=== PATIENT | male | born 1965 | race Caucasian/White ===

== ENCOUNTER 2017-01-24 13:32 | Inpatient (IN) | payer OTHER ==
[~2017-01-24] VITALS: Ht 165.1 cm; Wt 80.0 kg
[~2017-01-24 13:32] MED LIST: AMLODIPINE BESY10 MG PO; AMLODIPINE BESYL5 MG PO; ASPIR 8181 M1 PO; ASPIRIN81 M2 PO; ATORVASTATIN CA40 MG PO; AUGMENTIN875 MG PO; AZOR 5/20 MG1 TABLET; Advair 250/50 Diskus IH; BACTRIM,SEPT1 TABLET PO; BENADRYL25 MG PO; BENICAR HCT 401 EAC1 PO; BENICAR20 MG PO; BENTYL10 MG PO; BENTYL20 MG PO; Benicar PO; CATAPRES0.2 MG PO; CEPHALEXIN500 MG PO; CLEOCIN300 MG PO; CLOPIDOGREL75 MG PO; COLACE100 MG PO; DAILY VITAMIN1 EAC8 PO; DICLOFENAC SODI75 MG PO; DIVALPROEX SOD250 MG PO; DOXYCYCLINE HY100 MG PO; FEOSOL325 MG PO; FERROUS SULFAT325 MG PO; FISH OIL CONC1000 M1 PO; FLOMAX0.4 MG PO; FLUOXETINE HCL20 MG PO; Feosol PO; GABAPENTIN300 MG PO; GABAPENTIN400 MG PO; GEMFIBROZIL600 MG PO; GLUCOPHAGE850 MG PO; Glucophage PO; HYDROCODONE-AP1 EAC9 PO; INVanz IV; IRON325 M1 PO; IRON325 MG PO; KADIAN10 MG PO; KEFLEX500 MG PO; Keflex PO; LABETALOL HCL200 MG PO; LABETALOL HCL300 MG PO; LANTUS 10100 UNITS/ SC; LANTUS 3 M100 UNITS1 SC; LANTUS SOLOSTAR SC; LEVEMIR FL100 UNIT/1 SC; LIPITOR; LIPITOR10 MG PO; LIPITOR20 MG PO; LIPITOR40 MG PO; LISINOPRIL10 MG PO; LISINOPRIL20 MG PO; LOPRESSOR25 MG PO; LOPRESSOR50 MG PO; LORAZEPAM1 MG PO; LOSARTAN POTASS25 MG PO; Lopid PO; Lopressor PO; Lotrel 5/20 PO; MELATIN3 MG PO; MEN'S MULTI-VI1 EACH PO; METFORMIN HCL850 MG PO; METOCLOPRAMIDE10 MG PO; METOPROLOL PO; METOPROLOL SUCC50 MG PO; METOPROLOL TART25 MG PO; MS CONTIN,ORAMO15 M1 PO; MUPIROCIN22 GM TP; NAPROSYN500 MG PO; NEURONTIN100 MG PO; NEURONTIN300 MG PO; NEURONTIN400 MG PO; NORCO 5/3251 TABLET PO; Neurontin PO; OXYCODONE-ACET1 EACH PO; PERCOCET 2.51 TABLET PO; PERCOCET 5/31 TABLET PO; PERCOCET 7.51 TABLET PO; PHENERGAN; PLAVIX75 MG PO; PREDNISOL15 ML BOTH EYES; PRILOSEC20 MG PO; PRINIVIL10 MG PO; PRINIVIL20 MG PO; PROBIOTIC COMP1 EAC1 PO; PROPOXY-N/APAP1 EAC1 PO; PROTONIX40 MG PO; PROVENTIL,2.5 MG/0.5 IH; PROZAC20 MG PO; PROzac PO; Percocet 5/325,Endoc PO; Proventil,Ventolin H IH; QUESTRAN PACKET4 GM PO; REGLAN10 MG PO; ROCEPHIN 2 GM VI2 GM IM; ROCEPHIN 2 GM VI2 GM IV; Reglan PO; SANTYL30 GM TP; SENTRY SENIOR1 EAC1 PO; SULFAMETHOXAZO1 EAC1 PO; SYNTHROID50 MCG PO; TAMIFLU75 MG PO; TIZANIDINE HCL4 M1 PO; TRAMADOL HCL50 MG PO; TYLENOL EXTRA500 MG PO; Toprol XL PO; Ultram PO; VANCOMYCIN125 MG/2.5 PO; VICODIN,LORT1 TABLET PO; Vancomycin IV; Vicodin,Norco 5/325 PO; ZESTRIL,PRINIVI20 MG PO; Zestril,Prinivil PO; [UNRECOGNIZED DRUG - OTHER] PO; [UNRECOGNIZED DRUG - SUPPLY]; predniSONE PO
[2017-01-24 15:29] LABS: INFLUENZA A VIRAL ANTIGEN NEGATIVE; INFLUENZA B VIRAL ANTIGEN NEGATIVE
[2017-01-24 15:39] LABS: BASOPHIL COUNT 0.1 K/uL (0-0.1); EOSINOPHIL (%) 0.1 % (0-5); HEMATOCRIT 30.9 % (38.0-50.0); IMMATURE GRANULOCYTE (%) 0.3 % (0.0-0.7); IMMATURE GRANULOCYTE COUNT 0.4 K/uL; LYMPHOCYTE COUNT 0.7 K/uL (1.0-2.8); MCH 29.7 PG (29.0-34.0); MCHC 32.7 G/DL (30.0-36.0); MCV 90.9 FL (86-99); MEAN PLAT.VOLUME 9.6 uM^3 (9.0-12.4); MONOCYTE (%) 5.8 % (3-12); MONOCYTE COUNT 0.7 K/uL (0-0.8); NEUTROPHIL (%) 88.2 % (45-76); PLATELET COUNT 238 K/uL (156-360); RBC DIS.WIDTH-CV 12.6 % (11.8-14.6); RBC DIS.WIDTH-SD 40.8 % (39-53); WHITE BLOOD COUNT 12.5 K/uL (4.1-10.2)
[2017-01-24 15:49] LABS: CHLORIDE 107 mEq/L (99-109); POTASSIUM 3.9 mEq/L (3.7-5.4)
[2017-01-24 15:50] LABS: SODIUM 140 mEq/L (136-147)
[2017-01-24 15:51] LABS: GLUCOSE 115 mg/dL (70-99)
[2017-01-24 15:53] LABS: ANION GAP 9 MEQ/L (2-14)
[2017-01-24 15:55] LABS: GFR ESTIMATE (CALCULATED) 23 mL/min/
[2017-01-24 15:56] LABS: UREA NITROGEN (BUN) 21 mg/dL (9-23)
[2017-01-24 16:01] LABS: TROP-I INTERPRETATION NEGATIVE; TROPONIN-I 0.03 ng/mL (0.0-0.30)
[2017-01-24 16:16] LABS: INTER. NORMALIZED RATIO 1.1; PROTHROMBIN TIME 10.9 (9.2-11.2); PTT 36.1 (25-32)
[2017-01-24 19:49] LABS: MAGNESIUM 1.4 mg/dL (1.3-2.7); POTASSIUM 3.7 mEq/L (3.7-5.4)
[2017-01-24] MEDS ORDERED: KALEXATE454 GM PO (21:54)
[2017-01-24] MEDS ORDERED: LABETALOL HCL200 MG PO (21:56)
[2017-01-24] MEDS ORDERED: NORVASC5 MG PO (21:56)
[2017-01-24] MEDS ORDERED: ATORVASTATIN CA40 MG PO (21:57)
[2017-01-24] MEDS ORDERED: LEVOTHYROXINE50 MCG PO (21:57)
[2017-01-24] MEDS ORDERED: JANUVIA100 MG PO (21:58)
[2017-01-24] MEDS ORDERED: GABAPENTIN400 MG PO (21:59)
[2017-01-24] MEDS ORDERED: BACLOFEN10 MG PO (22:00)
[2017-01-24 23:37] LABS: ADD MIUA? YES; BILIRUBIN NEGATIVE; BLOOD NEGATIVE; COLOR YELLOW ((YELLOW)); GLUCOSE (STRIP) 150; KETONES 5; LEUKOCYTES NEGATIVE; NITRITE NEGATIVE; PROTEIN (STRIP) >=500; SPECIFIC GRAVITY 1.014 (1.000-1.030); UROBILINOGEN 0.2 MG/DL (0.2-1.0)
[2017-01-24 23:45] LABS: BACTERIA NONE SEEN /HPF; EPITHELIAL CELLS RARE /HPF; HYALINE CASTS 0-5 /LPF; MUCUS TRACE /LPF; RED BLOOD CELLS 0-5 /HPF (0-5); UCUL ADDED? NO; WHITE BLOOD CELLS 0-5 /HPF (0-5)
[2017-01-25] VITALS (7 sets, daily range): BP systolic 140–187; BP diastolic 63–83
[2017-01-25 06:16] LABS: MCH 30.3 PG (29.0-34.0); MCHC 33.2 G/DL (30.0-36.0); MCV 91.2 FL (86-99); MEAN PLAT.VOLUME 9.7 uM^3 (9.0-12.4); PLATELET COUNT 244 K/uL (156-360); RBC DIS.WIDTH-CV 12.7 % (11.8-14.6); WHITE BLOOD COUNT 8.9 K/uL (4.1-10.2)
[2017-01-25 06:26] LABS: CHLORIDE 110 mEq/L (99-109); POTASSIUM 3.6 mEq/L (3.7-5.4); SODIUM 140 mEq/L (136-147)
[2017-01-25 06:28] LABS: GLUCOSE 118 mg/dL (70-99)
[2017-01-25 06:29] LABS: ANION GAP 10 MEQ/L (2-14)
[2017-01-25 06:31] LABS: GFR ESTIMATE (CALCULATED) 24 mL/min/
[2017-01-25 06:32] LABS: UREA NITROGEN (BUN) 25 mg/dL (9-23)
[2017-01-25] MEDS ORDERED: LEVO-T100 MCG PO (14:38)
[2017-01-25] MEDS ORDERED: PLAVIX75 MG PO (14:39)
[2017-01-25] MEDS ORDERED: IRON325 M1 PO (14:40)
[2017-01-25] MEDS ORDERED: ASPIR 8181 M1 PO (14:40)
[2017-01-26 05:18] VITALS: BP 170/82
[2017-01-26 06:00] VITALS: BP 154/78
[2017-01-26 06:21] LABS: ALKALINE PHOSPHATASE 60 IU/L (3-129); ANION GAP 8 MEQ/L (2-14); CHLORIDE 107 MEQ/L (99-109); CREATINE KINASE 524 IU/L (1-294); GFR ESTIMATE (CALCULATED) 24 mL/min/; GLUCOSE 119 mg/dL (70-99); MAGNESIUM 1.9 mg/dl (1.3-2.7); POTASSIUM 3.7 MEQ/L (3.7-5.4); SAMPLE HEMOLYSIS CHECK 0; SAMPLE ICTERIC CHECK 0; SAMPLE LIPEMIA CHECK 0; SODIUM 139 MEQ/L (136-147); TOTAL BILIRUBIN 0.2 MG/DL (0.0-1.0); UREA NITROGEN (BUN) 31 mg/dL (9-23)
[2017-01-26 06:44] LABS: EOSINOPHIL (%) 4.3 % (0-5); EOSINOPHIL COUNT 0.3 K/uL (0-0.3); HEMATOCRIT 26.7 % (38.0-50.0); IMMATURE GRANULOCYTE (%) 0.2 % (0.0-0.7); LYMPHOCYTE COUNT 0.7 K/uL (1.0-2.8); MCH 29.1 PG (29.0-34.0); MCHC 32.6 G/DL (30.0-36.0); MCV 89.3 FL (86-99); MEAN PLAT.VOLUME 10.1 uM^3 (9.0-12.4); MONOCYTE COUNT 0.7 K/uL (0-0.8); NEUTROPHIL (%) 72.5 % (45-76); NEUTROPHIL COUNT 4.4 K/uL (1.8-6.4); PLATELET COUNT 221 K/uL (156-360); RBC DIS.WIDTH-CV 12.8 % (11.8-14.6); RBC DIS.WIDTH-SD 41.2 % (39-53); RED BLOOD COUNT 2.99 M/uL (4.00-5.50)
[2017-01-26 06:45] LABS: WHITE BLOOD COUNT 6.1 K/uL (4.1-10.2)
[2017-01-26 08:05] VITALS: BP 221/85
[2017-01-26 11:18] VITALS: BP 184/82
[2017-01-26 18:22] VITALS: BP 174/88
[2017-01-26 20:55] VITALS: BP 190/91
[2017-01-27] VITALS: BP 155/78
[2017-01-27 06:48] LABS: EOSINOPHIL (%) 5.9 % (0-5); EOSINOPHIL COUNT 0.4 K/uL (0-0.3); IMMATURE GRANULOCYTE (%) 0.3 % (0.0-0.7); INSTRUMENT ABS NEUTROPHIL CT 3.6 K/uL; LYMPHOCYTE COUNT 1.2 K/uL (1.0-2.8); MCH 29.9 PG (29.0-34.0); MCHC 32.8 G/DL (30.0-36.0); MCV 91.2 FL (86-99); MEAN PLAT.VOLUME 10.3 uM^3 (9.0-12.4); MONOCYTE (%) 14.1 % (3-12); MONOCYTE COUNT 0.8 K/uL (0-0.8); NEUTROPHIL (%) 59.6 % (45-76); NEUTROPHIL COUNT 3.6 K/uL (1.8-6.4); PLATELET COUNT 201 K/uL (156-360); RBC DIS.WIDTH-CV 12.5 % (11.8-14.6); RBC DIS.WIDTH-SD 41.5 % (39-53); RED BLOOD COUNT 2.74 M/uL (4.00-5.50)
[2017-01-27 07:13] LABS: ALKALINE PHOSPHATASE 64 IU/L (3-129); ANION GAP 9 MEQ/L (2-14); CHLORIDE 110 MEQ/L (99-109); GFR ESTIMATE (CALCULATED) 25 mL/min/; GLUCOSE 140 mg/dL (70-99); POTASSIUM 3.8 MEQ/L (3.7-5.4); SAMPLE HEMOLYSIS CHECK 0; SAMPLE ICTERIC CHECK 0; SAMPLE LIPEMIA CHECK 0; SODIUM 142 MEQ/L (136-147); TOTAL BILIRUBIN 0.2 MG/DL (0.0-1.0); UREA NITROGEN (BUN) 28 mg/dL (9-23)
[2017-01-27 08:34] VITALS: BP 207/84
[2017-01-27 15:59] VITALS: BP 150/63
[2017-01-27 22:02] VITALS: BP 165/70
[2017-01-28] VITALS: BP 143/69
[2017-01-28 07:41] VITALS: BP 142/59
[2017-01-28 07:52] LABS: ANION GAP 9 MEQ/L (2-14); C-REACTIVE PROTEIN 52.1 MG/L (0-10); CHLORIDE 113 MEQ/L (99-109); GFR ESTIMATE (CALCULATED) 24 mL/min/; POTASSIUM 3.9 MEQ/L (3.7-5.4); SAMPLE HEMOLYSIS CHECK 0; SAMPLE ICTERIC CHECK 0; SAMPLE LIPEMIA CHECK 0; SODIUM 143 MEQ/L (136-147); UREA NITROGEN (BUN) 28 mg/dL (9-23)
[2017-01-28 07:53] LABS: GLUCOSE 91 mg/dL (70-99)
[2017-01-28 07:54] LABS: MCHC 32.1 G/DL (30.0-36.0); MCV 93.3 FL (86-99); MEAN PLAT.VOLUME 10.3 uM^3 (9.0-12.4); RBC DIS.WIDTH-CV 12.8 % (11.8-14.6); WHITE BLOOD COUNT 7.7 K/uL (4.1-10.2)
[2017-01-28 08:40] LABS: PLATELET COUNT 271 K/uL (156-360)
[2017-01-28 11:17] LABS: ERTH.SED.RATE 73 MM/HR (0-20)
[2017-01-28 15:25] VITALS: BP 160/76
[2017-01-28 21:10] VITALS: BP 162/68
[2017-01-28 23:15] VITALS: BP 189/89
[2017-01-29 07:38] VITALS: BP 150/73
[2017-01-29 10:00] LABS: HEMATOCRIT 26.6 % (38.0-50.0); MCH 30.3 PG (29.0-34.0); MCHC 32.7 G/DL (30.0-36.0); MCV 92.7 FL (86-99); MEAN PLAT.VOLUME 10.1 uM^3 (9.0-12.4); PLATELET COUNT 263 K/uL (156-360); RBC DIS.WIDTH-CV 12.4 % (11.8-14.6); RBC DIS.WIDTH-SD 41.5 % (39-53); RED BLOOD COUNT 2.87 M/uL (4.00-5.50); WHITE BLOOD COUNT 8.2 K/uL (4.1-10.2)
[2017-01-29 10:24] LABS: ANION GAP 7 MEQ/L (2-14); CHLORIDE 108 MEQ/L (99-109); GFR ESTIMATE (CALCULATED) 23 mL/min/; GLUCOSE 133 mg/dL (70-99); POTASSIUM 3.9 MEQ/L (3.7-5.4); SAMPLE HEMOLYSIS CHECK 0; SAMPLE ICTERIC CHECK 0; SAMPLE LIPEMIA CHECK 0; SODIUM 138 MEQ/L (136-147); UREA NITROGEN (BUN) 33 mg/dL (9-23)
[2017-01-29 15:41] VITALS: BP 160/70
[2017-01-29 22:58] VITALS: BP 177/75
[2017-01-30 07:44] LABS: ANION GAP 8 MEQ/L (2-14); CHLORIDE 111 MEQ/L (99-109); GFR ESTIMATE (CALCULATED) 27 mL/min/; GLUCOSE 109 mg/dL (70-99); POTASSIUM 4.4 MEQ/L (3.7-5.4); SAMPLE HEMOLYSIS CHECK 0; SAMPLE ICTERIC CHECK 0; SAMPLE LIPEMIA CHECK 0; SODIUM 140 MEQ/L (136-147); UREA NITROGEN (BUN) 29 mg/dL (9-23)
[2017-01-30 07:46] VITALS: BP 194/99
[2017-01-30] MEDS ORDERED: FUROSEMIDE20 MG PO (08:05)
[2017-01-30] MEDS ORDERED: APRESOLINE100 MG PO (08:05)
[2017-01-30] MEDS ORDERED: HYDROCODON-ACE1 EAC7 PO (08:05)
[2017-01-30] MEDS ORDERED: AMLODIPINE BESY10 MG PO (08:05)
[2017-01-30 15:00] VITALS: BP 183/70
[2017-01-30 18:12] VITALS: BP 184/87
[2017-01-30 18:23] LABS: POINT-OF-CARE METER ID UU14149397
[2017-01-30 23:51] VITALS: BP 111/49
[2017-01-31 05:34] VITALS: BP 180/77
[2017-01-31 06:43] LABS: POINT-OF-CARE METER ID UU14188577
[2017-01-31 07:16] VITALS: BP 167/79
[2017-01-31 09:31] LABS: ANION GAP 9 MEQ/L (2-14); CHLORIDE 108 MEQ/L (99-109); GFR ESTIMATE (CALCULATED) 28 mL/min/; GLUCOSE 103 mg/dL (70-99); SAMPLE HEMOLYSIS CHECK 1; SAMPLE ICTERIC CHECK 0; SAMPLE LIPEMIA CHECK 0; SODIUM 137 MEQ/L (136-147); UREA NITROGEN (BUN) 29 mg/dL (9-23)
[2017-01-31 09:35] LABS: POTASSIUM 4.9 MEQ/L (3.7-5.4)
[2017-01-31 11:55] LABS: POINT-OF-CARE METER ID UU14188577
[2017-01-31 15:39] VITALS: BP 159/71
[2017-01-31 16:36] LABS: POINT-OF-CARE METER ID UU14188577
[2017-01-31 21:49] LABS: POINT-OF-CARE METER ID UU14188577
[2017-01-31 23:42] VITALS: BP 137/63
[2017-02-01 08:00] VITALS: BP 151/67
== END 2017-02-01 15:39 | disposition home health service (06) | DRG 854 ==
LOC: EME → EDBD 13:32 → EDOF 18:21 → 4SOUTH 18:21 → 3EAST 01-30 17:45
PROVIDERS: Emergency Medicine; Family Medicine; Internal Medicine Nephrology; Nurse Practitioner Adult Health; Surgery
PROC: 0QBN0ZX Excision of Right Metatarsal, Open Approach, Diagnostic (ICD-10-PCS; principal; 2017-01-27)
DX: A41.01 Sepsis due to Methicillin susceptible Staphylococcus aureus (principal); N17.9 Acute kidney failure, unspecified; M86.171 Other acute osteomyelitis, right ankle and foot; M86.671 Other chronic osteomyelitis, right ankle and foot; L03.115 Cellulitis of right lower limb; N18.4 Chronic kidney disease, stage 4 (severe); E86.0 Dehydration; R41.82 Altered mental status, unspecified; R33.9 Retention of urine, unspecified; I10 Essential (primary) hypertension; E11.621 Type 2 diabetes mellitus with foot ulcer; L97.514 Non-pressure chronic ulcer of other part of right foot with necrosis of bone; E11.40 Type 2 diabetes mellitus with diabetic neuropathy, unspecified; E11.21 Type 2 diabetes mellitus with diabetic nephropathy; E11.22 Type 2 diabetes mellitus with diabetic chronic kidney disease; E11.319 Type 2 diabetes mellitus with unspecified diabetic retinopathy without macular edema; E11.51 Type 2 diabetes mellitus with diabetic peripheral angiopathy without gangrene; I70.209 Unspecified atherosclerosis of native arteries of extremities, unspecified extremity; R60.9 Edema, unspecified; J45.909 Unspecified asthma, uncomplicated; K21.9 Gastro-esophageal reflux disease without esophagitis; E03.9 Hypothyroidism, unspecified; E78.00 Pure hypercholesterolemia, unspecified; D63.1 Anemia in chronic kidney disease; E55.9 Vitamin D deficiency, unspecified; Z79.02 Long term (current) use of antithrombotics/antiplatelets; Z79.82 Long term (current) use of aspirin; Z88.1 Allergy status to other antibiotic agents; Z91.040 Latex allergy status; Z89.421 Acquired absence of other right toe(s); Z89.422 Acquired absence of other left toe(s); I69.398 Other sequelae of cerebral infarction; H53.469 Homonymous bilateral field defects, unspecified side; Z79.84 Long term (current) use of oral hypoglycemic drugs
CPT/HCPCS: 70450; 71010; 74176; 76770; 76937; 80048; 80053; 80069; 81003; 82330; 82550; 82550 91; 82948; 83605; 83735; 83874 90; 83930; 84100; 84132 91; 84443; 84484; 85025; 85027; 85610; 85651; 85730; 86140; 87040; 87070; 87075; 87077; 87186; 87205; 87502; 87801; 88305; 88311; 93005; 93306; 99281; 99285; J0690; J0692; J0696; J1100; J1650; J2250; J2405; J3010; J7030; J7050; S0020

== ENCOUNTER 2017-02-04 19:19 | Emergency (ER) | payer OTHER ==
[~2017-02-04] VITALS: Ht 167.6 cm; Wt 86.5 kg
[~2017-02-04 19:19] MED LIST changes: +APRESOLINE100 MG PO; +BACLOFEN10 MG PO; +FUROSEMIDE20 MG PO; +HYDROCODON-ACE1 EAC7 PO; +JANUVIA100 MG PO; +KALEXATE454 GM PO; +LEVO-T100 MCG PO; +LEVOTHYROXINE50 MCG PO; +NORVASC5 MG PO
[2017-02-04 21:48] LABS: BASOPHIL COUNT 0.1 K/uL (0-0.1); EOSINOPHIL (%) 1.8 % (0-5); EOSINOPHIL COUNT 0.2 K/uL (0-0.3); HEMATOCRIT 26.3 % (38.0-50.0); IMMATURE GRANULOCYTE (%) 1.6 % (0.0-0.7); IMMATURE GRANULOCYTE COUNT 0.2 K/uL; INSTRUMENT ABS NEUTROPHIL CT 7.7 K/uL; LYMPHOCYTE COUNT 1.3 K/uL (1.0-2.8); MCHC 31.6 G/DL (30.0-36.0); MCV 94.9 FL (86-99); MEAN PLAT.VOLUME 9.6 uM^3 (9.0-12.4); MONOCYTE (%) 7.9 % (3-12); MONOCYTE COUNT 0.8 K/uL (0-0.8); NEUTROPHIL (%) 75.5 % (45-76); NEUTROPHIL COUNT 7.7 K/uL (1.8-6.4); PLATELET COUNT 327 K/uL (156-360); RBC DIS.WIDTH-SD 44.5 % (39-53); RED BLOOD COUNT 2.77 M/uL (4.00-5.50); WHITE BLOOD COUNT 10.2 K/uL (4.1-10.2)
[2017-02-04 21:56] LABS: CHLORIDE 107 mEq/L (99-109); POTASSIUM 4.5 mEq/L (3.7-5.4); SODIUM 138 mEq/L (136-147)
[2017-02-04 21:58] LABS: GLUCOSE 112 mg/dL (70-99)
[2017-02-04 21:59] LABS: ANION GAP 9 MEQ/L (2-14)
[2017-02-04 22:02] LABS: GFR ESTIMATE (CALCULATED) 18 mL/min/; UREA NITROGEN (BUN) 39 mg/dL (9-23)
[2017-02-04 22:03] VITALS: BP 154/88
== END 2017-02-04 23:32 | disposition left against medical advice (07) ==
LOC: EME 19:19
PROVIDERS: Emergency Medicine
DX: S91.301A Unspecified open wound, right foot, initial encounter (principal); Z98.890 Other specified postprocedural states; Z48.01 Encounter for change or removal of surgical wound dressing; Z89.421 Acquired absence of other right toe(s); E11.65 Type 2 diabetes mellitus with hyperglycemia; I10 Essential (primary) hypertension; E78.5 Hyperlipidemia, unspecified; Z79.02 Long term (current) use of antithrombotics/antiplatelets; Z79.82 Long term (current) use of aspirin
CPT/HCPCS: 73630; 80048; 83605; 85025; 87040; 99281; 99284

== ENCOUNTER 2017-05-09 11:59 | Day surgery (SDC) | payer OTHER ==
[~2017-05-09] VITALS: Ht 167.6 cm; Wt 68.0 kg
[~2017-05-09 11:59] MED LIST changes: +CENTRUM SILVER1 EAC3 PO
[2017-05-09 12:41] LABS: POINT-OF-CARE METER ID UU14174212
== END 2017-05-09 14:58 | disposition home or self-care (01) ==
LOC: PAIN 11:59 → SDC 12:45 → PAIN 12:45
PROVIDERS: Anesthesiology Pain Medicine
DX: M47.816 Spondylosis without myelopathy or radiculopathy, lumbar region (principal); F41.9 Anxiety disorder, unspecified; R94.31 Abnormal electrocardiogram [ECG] [EKG]; Z79.891 Long term (current) use of opiate analgesic; I12.9 Hypertensive chronic kidney disease with stage 1 through stage 4 chronic kidney disease, or unspecified chronic kidney disease; N18.4 Chronic kidney disease, stage 4 (severe); D63.1 Anemia in chronic kidney disease; E78.5 Hyperlipidemia, unspecified; E11.22 Type 2 diabetes mellitus with diabetic chronic kidney disease; E11.49 Type 2 diabetes mellitus with other diabetic neurological complication; E11.39 Type 2 diabetes mellitus with other diabetic ophthalmic complication; F01.50 Vascular dementia, unspecified severity, without behavioral disturbance, psychotic disturbance, mood disturbance, and anxiety
CPT/HCPCS: 82948; 93005; J0360; J1030; J2250; J2310; J3010

== ENCOUNTER 2017-05-16 10:14 | Day surgery (SDC) | payer OTHER ==
[~2017-05-16] VITALS: Ht 167.6 cm; Wt 68.0 kg
[2017-05-16 11:51] LABS: POINT-OF-CARE METER ID UU13113694
== END 2017-05-16 13:21 | disposition home or self-care (01) ==
LOC: PAIN 10:14 → SDC 11:15 → PAIN 11:15
PROVIDERS: Anesthesiology Pain Medicine
DX: M47.812 Spondylosis without myelopathy or radiculopathy, cervical region (principal); M47.816 Spondylosis without myelopathy or radiculopathy, lumbar region; M47.814 Spondylosis without myelopathy or radiculopathy, thoracic region; M54.2 Cervicalgia; I12.9 Hypertensive chronic kidney disease with stage 1 through stage 4 chronic kidney disease, or unspecified chronic kidney disease; E11.22 Type 2 diabetes mellitus with diabetic chronic kidney disease; N18.4 Chronic kidney disease, stage 4 (severe); E11.49 Type 2 diabetes mellitus with other diabetic neurological complication; E11.39 Type 2 diabetes mellitus with other diabetic ophthalmic complication; I70.209 Unspecified atherosclerosis of native arteries of extremities, unspecified extremity; D63.1 Anemia in chronic kidney disease; E78.00 Pure hypercholesterolemia, unspecified; F41.8 Other specified anxiety disorders; Z79.891 Long term (current) use of opiate analgesic; Z79.02 Long term (current) use of antithrombotics/antiplatelets; Z79.82 Long term (current) use of aspirin; Z79.4 Long term (current) use of insulin
CPT/HCPCS: 82948; J0360; J1030; S0020

== ENCOUNTER 2017-06-15 10:34 | Observation (INO) | payer OTHER ==
[~2017-06-15] VITALS: Ht 167.6 cm; Wt 71.0 kg
[~2017-06-15 10:34] MED LIST changes: +GABAPENTIN600 MG PO
[2017-06-15 11:44] LABS: BASOPHIL COUNT 0.1 K/uL (0-0.1); EOSINOPHIL (%) 3.5 % (0-5); EOSINOPHIL COUNT 0.2 K/uL (0-0.3); HEMATOCRIT 31.1 % (38.0-50.0); IMMATURE GRANULOCYTE (%) 1.1 % (0.0-0.7); IMMATURE GRANULOCYTE COUNT 0.1 K/uL; INSTRUMENT ABS NEUTROPHIL CT 3.9 K/uL; LYMPHOCYTE COUNT 1.5 K/uL (1.0-2.8); MCH 30.7 PG (29.0-34.0); MCHC 34.4 G/DL (30.0-36.0); MCV 89.1 FL (86-99); MEAN PLAT.VOLUME 10.1 uM^3 (9.0-12.4); MONOCYTE (%) 7.8 % (3-12); MONOCYTE COUNT 0.5 K/uL (0-0.8); NEUTROPHIL (%) 62.6 % (45-76); NEUTROPHIL COUNT 3.9 K/uL (1.8-6.4); PLATELET COUNT 206 K/uL (156-360); RBC DIS.WIDTH-CV 12.9 % (11.8-14.6); RED BLOOD COUNT 3.49 M/uL (4.00-5.50); WHITE BLOOD COUNT 6.3 K/uL (4.1-10.2)
[2017-06-15 11:54] LABS: CHLORIDE 110 mEq/L (99-109); POTASSIUM 4.2 mEq/L (3.7-5.4); SODIUM 141 mEq/L (136-147)
[2017-06-15 11:57] LABS: GLUCOSE 125 mg/dL (70-99)
[2017-06-15 11:58] LABS: ANION GAP 9 MEQ/L (2-14)
[2017-06-15 11:59] LABS: TOTAL BILIRUBIN 0.2 mg/dL (0.0-1.0)
[2017-06-15 12:00] LABS: ALKALINE PHOSPHATASE 93 IU/L (3-129); GFR ESTIMATE (CALCULATED) 17 mL/min/
[2017-06-15 12:01] LABS: UREA NITROGEN (BUN) 32 mg/dL (9-23)
[2017-06-15 12:03] LABS: CREATINE KINASE 143 IU/L (1-294); TOTAL CK 143 IU/L (1-294)
[2017-06-15 12:04] LABS: TROP-I INTERPRETATION NEGATIVE; TROPONIN-I 0.06 ng/mL (0.0-0.30)
[2017-06-15 12:11] LABS: CK-MB 3.7 ng/mL (0.0-4.9)
[2017-06-15] MEDS ORDERED: SYNTHROID25 MCG PO (16:38)
[2017-06-15] MEDS ORDERED: CATAPRES0.2 MG PO (16:39)
[2017-06-15] MEDS ORDERED: ZANAFLEX2 MG PO (16:41)
[2017-06-15] MEDS ORDERED: TRAZODONE HCL50 MG PO (16:43)
[2017-06-15] MEDS ORDERED: VITAMIN D31000 UNIT PO (16:43)
[2017-06-15 19:22] VITALS: BP 138/77
== END 2017-06-15 18:35 | disposition home or self-care (01) ==
LOC: EME → EDBD 10:34 → EME 10:34 → EDOF 15:27 → ENRESERV 15:28 → CANRESERV 15:41 → EDOF 18:35
PROVIDERS: Emergency Medicine
DX: I16.0 Hypertensive urgency (principal); I12.9 Hypertensive chronic kidney disease with stage 1 through stage 4 chronic kidney disease, or unspecified chronic kidney disease; N18.5 Chronic kidney disease, stage 5; D63.1 Anemia in chronic kidney disease; E55.9 Vitamin D deficiency, unspecified; M54.9 Dorsalgia, unspecified; Z79.891 Long term (current) use of opiate analgesic; I70.209 Unspecified atherosclerosis of native arteries of extremities, unspecified extremity; N40.0 Benign prostatic hyperplasia without lower urinary tract symptoms; I69.398 Other sequelae of cerebral infarction; E78.5 Hyperlipidemia, unspecified; E03.9 Hypothyroidism, unspecified; E11.22 Type 2 diabetes mellitus with diabetic chronic kidney disease; Z86.19 Personal history of other infectious and parasitic diseases; Z91.040 Latex allergy status; Z79.82 Long term (current) use of aspirin
CPT/HCPCS: 80053; 82550; 82553; 84484; 85025; 99281; 99285; G0378; J0360

== ENCOUNTER 2017-07-11 07:26 | Day surgery (SDC) | payer OTHER ==
[~2017-07-11] VITALS: Ht 167.6 cm; Wt 69.4 kg
[~2017-07-11 07:26] MED LIST changes: +CARDURA2 M1 PO; -GABAPENTIN600 MG PO; +SYNTHROID25 MCG PO; +TRAZODONE HCL50 MG PO; +VITAMIN D31000 UNIT PO; +ZANAFLEX2 MG PO
[2017-07-11 08:09] LABS: POINT-OF-CARE METER ID UU13113694
== END 2017-07-11 10:30 | disposition home or self-care (01) ==
LOC: PAIN 07:26 → SDC 08:15 → PAIN 08:15
PROVIDERS: Anesthesiology Pain Medicine
DX: M47.812 Spondylosis without myelopathy or radiculopathy, cervical region (principal); M54.2 Cervicalgia; N18.4 Chronic kidney disease, stage 4 (severe); E11.22 Type 2 diabetes mellitus with diabetic chronic kidney disease; I12.9 Hypertensive chronic kidney disease with stage 1 through stage 4 chronic kidney disease, or unspecified chronic kidney disease; E11.69 Type 2 diabetes mellitus with other specified complication; E11.39 Type 2 diabetes mellitus with other diabetic ophthalmic complication; I70.209 Unspecified atherosclerosis of native arteries of extremities, unspecified extremity; D63.1 Anemia in chronic kidney disease; F01.50 Vascular dementia, unspecified severity, without behavioral disturbance, psychotic disturbance, mood disturbance, and anxiety; M79.1 Myalgia; E03.9 Hypothyroidism, unspecified; J45.909 Unspecified asthma, uncomplicated; Z86.14 Personal history of Methicillin resistant Staphylococcus aureus infection; Z86.73 Personal history of transient ischemic attack (TIA), and cerebral infarction without residual deficits; Z79.02 Long term (current) use of antithrombotics/antiplatelets; Z79.4 Long term (current) use of insulin; Z79.82 Long term (current) use of aspirin; Z79.891 Long term (current) use of opiate analgesic
CPT/HCPCS: 82948; J1030; J2250; J3010; S0020

== ENCOUNTER 2017-11-29 03:32 | Inpatient (IN) | payer OTHER ==
[~2017-11-29] VITALS: Ht 167.6 cm; Wt 71.3 kg
[~2017-11-29 03:32] MED LIST changes: -SYNTHROID25 MCG PO; +SYNTHROID75 MCG PO
[2017-11-29 04:19] LABS: HEMATOCRIT 26.8 % (38.0-50.0); HEMOGLOBIN 8.6 G/DL (12.5-16.6); MCH 32.3 PG (29.0-34.0); MCHC 32.1 G/DL (30.0-36.0); MCV 100.8 FL (86-99); PLATELET COUNT 251 K/uL (156-360); RED BLOOD COUNT 2.66 M/uL (4.00-5.50); WHITE BLOOD COUNT 10.1 K/uL (4.1-10.2)
[2017-11-29 04:27] LABS: ALBUMIN 2.8 g/dL (3.2-4.8); CHLORIDE 119 mEq/L (99-109); POTASSIUM 5.5 mEq/L (3.7-5.4); SODIUM 143 mEq/L (136-147)
[2017-11-29 04:29] LABS: GLUCOSE 114 mg/dL (70-99); TOTAL PROTEIN 5.9 g/dL (6.4-8.3)
[2017-11-29 04:31] LABS: INTER. NORMALIZED RATIO 1.1; TOTAL BILIRUBIN 0.2 mg/dL (0.0-1.0)
[2017-11-29 04:32] LABS: SERUM ETHYL ALCOHOL < 10 mg/dL
[2017-11-29 04:33] LABS: ALKALINE PHOSPHATASE 89 IU/L (3-129); CREATININE 5.5 mg/dL (0.6-1.3); GFR ESTIMATE (CALCULATED) 12 mL/min/ (58.99-99999)
[2017-11-29 04:34] LABS: AST (GOT) 60 IU/L (2-34); UREA NITROGEN (BUN) 36 mg/dL (9-23)
[2017-11-29 04:36] LABS: ALT (GPT) 40 IU/L (3-49); LIPASE 30 U/L (1.0-51.0)
[2017-11-29 04:40] LABS: TROP-I INTERPRETATION NEGATIVE; TROPONIN-I 0.03 ng/mL (0.0-0.30)
[2017-11-29 11:26] LABS: TROP-I INTERPRETATION NEGATIVE; TROPONIN-I 0.02 ng/mL (0.0-0.30)
[2017-11-29] MEDS ORDERED: ENDOCET 5-3251 EACH PO (13:09)
[2017-11-29] MEDS ORDERED: BACLOFEN10 MG PO (13:09)
[2017-11-29] MEDS ORDERED: VITAMIN B-6100 MG PO (13:10)
[2017-11-29] MEDS ORDERED: MELATONIN3 MG PO (13:10)
[2017-11-29 17:31] LABS: TROP-I INTERPRETATION NEGATIVE; TROPONIN-I 0.02 ng/mL (0.0-0.30)
[2017-11-29 19:19] VITALS: BP 210/84
[2017-11-30] VITALS (7 sets, daily range): BP systolic 114–221; BP diastolic 55–98
[2017-11-30 06:21] LABS: CHLORIDE 112 MEQ/L (99-109); CREATININE 5.3 MG/DL (0.6-1.3); GFR ESTIMATE (CALCULATED) 12 mL/min/ (58.99-99999); GLUCOSE 122 mg/dL (70-99); POTASSIUM 4.6 MEQ/L (3.7-5.4); SODIUM 141 MEQ/L (136-147); UREA NITROGEN (BUN) 39 mg/dL (9-23)
[2017-12-01 05:07] VITALS: BP 179/80
[2017-12-01 05:53] LABS: BASOPHIL (%) 0.9 % (0-1); BASOPHIL COUNT 0.1 K/uL (0-0.1); EOSINOPHIL (%) 7.6 % (0-5); EOSINOPHIL COUNT 0.5 K/uL (0-0.3); HEMATOCRIT 26.7 % (38.0-50.0); HEMOGLOBIN 8.5 G/DL (12.5-16.6); LYMPHOCYTE (%) 23.2 % (15-42); LYMPHOCYTE COUNT 1.6 K/uL (1.0-2.8); MCH 31.8 PG (29.0-34.0); MCHC 31.8 G/DL (30.0-36.0); MONOCYTE (%) 9.2 % (3-12); MONOCYTE COUNT 0.6 K/uL (0-0.8); NEUTROPHIL (%) 58.1 % (45-76); PLATELET COUNT 235 K/uL (156-360); RBC DIS.WIDTH-CV 13.2 % (11.8-14.6); RBC DIS.WIDTH-SD 48.4 % (39-53); RED BLOOD COUNT 2.67 M/uL (4.00-5.50); WHITE BLOOD COUNT 6.9 K/uL (4.1-10.2)
[2017-12-01 05:59] LABS: INTER. NORMALIZED RATIO 0.9
[2017-12-01 06:02] LABS: PTT 28.5 SEC (25-37)
[2017-12-01 06:18] LABS: CHLORIDE 113 MEQ/L (99-109); CREATININE 5.1 MG/DL (0.6-1.3); GFR ESTIMATE (CALCULATED) 13 mL/min/ (58.99-99999); GLUCOSE 122 mg/dL (70-99); POTASSIUM 4.4 MEQ/L (3.7-5.4); SODIUM 140 MEQ/L (136-147); UREA NITROGEN (BUN) 40 mg/dL (9-23)
[2017-12-01 08:13] VITALS: BP 214/86
[2017-12-01 09:30] VITALS: BP 138/96
[2017-12-01 10:45] LABS: APPEARANCE CLEAR ((CLEAR)); BILIRUBIN NEGATIVE; BLOOD NEGATIVE; COLOR STRAW ((YELLOW)); GLUCOSE (STRIP) 50; KETONES NEGATIVE; LEUKOCYTES NEGATIVE; NITRITE NEGATIVE; PROTEIN (STRIP) >=500; SPECIFIC GRAVITY 1.008 (1.000-1.030); UROBILINOGEN 0.2 MG/DL (0.2-1.0)
[2017-12-01 10:48] LABS: BACTERIA RARE /HPF; EPITHELIAL CELLS NONE SEEN /HPF; HYALINE CASTS 0-5 /LPF; MUCUS TRACE /LPF; RED BLOOD CELLS 0-5 /HPF (0-5); WHITE BLOOD CELLS 0-5 /HPF (0-5)
[2017-12-01 11:30] VITALS: BP 153/67
[2017-12-01 13:35] LABS: ANTI-HEPATITIS B CORE (TOTAL) Nonreactive; HEPATITIS B SURFACE ANTIGEN Nonreactive; HEPATITIS C ANTIBODY Nonreactive
[2017-12-01 13:36] LABS: HEPATITIS B SURFACE ANTIBODY Nonreactive
[2017-12-01 20:00] VITALS: BP 160/76
[2017-12-01 23:55] VITALS: BP 186/84
[2017-12-02 04:00] VITALS: BP 176/74
[2017-12-02 07:34] VITALS: BP 175/93
[2017-12-02 07:46] LABS: BASOPHIL COUNT 0.1 K/uL (0-0.1); EOSINOPHIL (%) 6.1 % (0-5); EOSINOPHIL COUNT 0.4 K/uL (0-0.3); HEMATOCRIT 24.5 % (38.0-50.0); HEMOGLOBIN 7.8 G/DL (12.5-16.6); IMMATURE GRANULOCYTE (%) 0.7 % (0.0-0.7); LYMPHOCYTE (%) 19.9 % (15-42); LYMPHOCYTE COUNT 1.3 K/uL (1.0-2.8); MCH 31.2 PG (29.0-34.0); MCHC 31.8 G/DL (30.0-36.0); MONOCYTE (%) 9.1 % (3-12); MONOCYTE COUNT 0.6 K/uL (0-0.8); NEUTROPHIL (%) 63.2 % (45-76); NEUTROPHIL COUNT 4.2 K/uL (1.8-6.4); PLATELET COUNT 220 K/uL (156-360); WHITE BLOOD COUNT 6.7 K/uL (4.1-10.2)
[2017-12-02 08:11] LABS: ALBUMIN 2.5 G/DL (3.2-4.8); CHLORIDE 105 MEQ/L (99-109); GLUCOSE 166 mg/dL (70-99); PHOSPHORUS 3.9 mg/dL (2.5-4.9); POTASSIUM 3.8 MEQ/L (3.7-5.4); SODIUM 138 MEQ/L (136-147); UREA NITROGEN (BUN) 24 mg/dL (9-23)
[2017-12-02 08:15] LABS: CREATININE 3.6 MG/DL (0.6-1.3); GFR ESTIMATE (CALCULATED) 19 mL/min/ (58.99-99999)
== END 2017-12-02 13:43 | disposition left against medical advice (07) | DRG 682 ==
LOC: EME 03:32 → EDOF 08:09 → 4EAST 08:09 → EDOF 08:09 → ENRESERV 08:10 → EDOF 08:44 → ENRESERV 17:42 → 4EAST 19:14
PROVIDERS: Emergency Medicine; Internal Medicine; Internal Medicine Nephrology
PROC: 02HV33Z Insertion of Infusion Device into Superior Vena Cava, Percutaneous Approach (ICD-10-PCS; principal; 2017-12-01)
PROC: 5A1D70Z Performance of Urinary Filtration, Intermittent, Less than 6 Hours Per Day (ICD-10-PCS; principal; 2017-12-01)
DX: I12.0 Hypertensive chronic kidney disease with stage 5 chronic kidney disease or end stage renal disease (principal); I16.1 Hypertensive emergency; N18.6 End stage renal disease; E87.5 Hyperkalemia; E87.2 Acidosis; N17.9 Acute kidney failure, unspecified; E11.22 Type 2 diabetes mellitus with diabetic chronic kidney disease; E11.319 Type 2 diabetes mellitus with unspecified diabetic retinopathy without macular edema; E11.42 Type 2 diabetes mellitus with diabetic polyneuropathy; E11.21 Type 2 diabetes mellitus with diabetic nephropathy; R41.89 Other symptoms and signs involving cognitive functions and awareness; D63.1 Anemia in chronic kidney disease; R04.0 Epistaxis; E78.5 Hyperlipidemia, unspecified; F32.9 Major depressive disorder, single episode, unspecified; F41.9 Anxiety disorder, unspecified; E03.9 Hypothyroidism, unspecified; Z91.19 Patient's noncompliance with other medical treatment and regimen; Z79.4 Long term (current) use of insulin; Z79.02 Long term (current) use of antithrombotics/antiplatelets; Z79.82 Long term (current) use of aspirin; Z91.81 History of falling; Z86.73 Personal history of transient ischemic attack (TIA), and cerebral infarction without residual deficits; Z89.432 Acquired absence of left foot; Z89.431 Acquired absence of right foot
CPT/HCPCS: 70450; 71045; 72125; 74176; 80048; 80053; 80069; 81003; 82140; 82948; 83605; 83690; 84484; 85025; 85027; 85610; 85730; 86704; 86706; 86803; 87340; 87641; 93005; 99281; 99285; C1788; C1894; G0378; G0480; J0360; J0690; J0696; J0881; J1644; J1815; J2250; J2270; J3010

== ENCOUNTER 2017-12-20 09:58 | Day surgery (SDC) | payer OTHER ==
[~2017-12-20] VITALS: Ht 167.6 cm; Wt 70.8 kg
[~2017-12-20 09:58] MED LIST changes: +ENDOCET 5-3251 EACH PO; +MELATONIN3 MG PO; +NIFEDIPINE ER60 MG PO; +VITAMIN B-6100 MG PO
[2017-12-20 10:39] VITALS: BP 167/84
[2017-12-20 10:40] LABS: HEMATOCRIT 38.2 % (38.0-50.0); MCH 32.1 PG (29.0-34.0); MCHC 32.5 G/DL (30.0-36.0); PLATELET COUNT 234 K/uL (156-360); RBC DIS.WIDTH-CV 13.7 % (11.8-14.6); RBC DIS.WIDTH-SD 49.9 % (39-53); WHITE BLOOD COUNT 11.5 K/uL (4.1-10.2)
[2017-12-20 10:41] LABS: HEMOGLOBIN 12.4 G/DL (12.5-16.6); RED BLOOD COUNT 3.86 M/uL (4.00-5.50)
[2017-12-20 11:06] LABS: CHLORIDE 100 MEQ/L (99-109); POTASSIUM 3.3 MEQ/L (3.7-5.4); SODIUM 141 MEQ/L (136-147)
[2017-12-20 11:11] LABS: CREATININE 4.1 MG/DL (0.6-1.3); GFR ESTIMATE (CALCULATED) 16 mL/min/ (58.99-99999); GLUCOSE 156 mg/dL (70-99); UREA NITROGEN (BUN) 36 mg/dL (9-23)
[2017-12-20] MEDS ORDERED: ULTRAM50 MG PO (15:55)
[2017-12-20 20:59] VITALS: BP 197/95
[2017-12-20 21:39] VITALS: BP 156/77
== END 2017-12-20 21:55 | disposition home or self-care (01) ==
LOC: SDC 09:58
PROVIDERS: Surgery
PROC: 03180JD Bypass Left Brachial Artery to Upper Arm Vein with Synthetic Substitute, Open Approach (ICD-10-PCS; principal; 2017-12-20)
PROC: 3E03317 Introduction of Other Thrombolytic into Peripheral Vein, Percutaneous Approach (ICD-10-PCS; principal; 2017-12-20)
DX: I12.0 Hypertensive chronic kidney disease with stage 5 chronic kidney disease or end stage renal disease (principal); E11.22 Type 2 diabetes mellitus with diabetic chronic kidney disease; E11.65 Type 2 diabetes mellitus with hyperglycemia; N18.6 End stage renal disease; Z99.2 Dependence on renal dialysis; Z79.4 Long term (current) use of insulin; E11.42 Type 2 diabetes mellitus with diabetic polyneuropathy; E03.9 Hypothyroidism, unspecified; F41.8 Other specified anxiety disorders; Z86.73 Personal history of transient ischemic attack (TIA), and cerebral infarction without residual deficits
CPT/HCPCS: 80048; 82948; 85027; 87641; C1757; C1768; J0690; J1644; J2250; J2720; J3010

== ENCOUNTER 2018-01-01 10:13 | Emergency (ER) | payer OTHER ==
[~2018-01-01] VITALS: Ht 167.6 cm; Wt 72.1 kg
[~2018-01-01 10:13] MED LIST changes: +ULTRAM50 MG PO
[2018-01-01 11:09] LABS: BASOPHIL (%) 1.1 % (0-1); BASOPHIL COUNT 0.1 K/uL (0-0.1); EOSINOPHIL (%) 5.1 % (0-5); EOSINOPHIL COUNT 0.5 K/uL (0-0.3); HEMATOCRIT 35.1 % (38.0-50.0); HEMOGLOBIN 11.7 G/DL (12.5-16.6); IMMATURE GRANULOCYTE (%) 0.8 % (0.0-0.7); LYMPHOCYTE (%) 14.6 % (15-42); LYMPHOCYTE COUNT 1.3 K/uL (1.0-2.8); MCH 32.1 PG (29.0-34.0); MCHC 33.3 G/DL (30.0-36.0); MCV 96.4 FL (86-99); MONOCYTE COUNT 0.7 K/uL (0-0.8); NEUTROPHIL (%) 70.4 % (45-76); NEUTROPHIL COUNT 6.4 K/uL (1.8-6.4); PLATELET COUNT 204 K/uL (156-360); RBC DIS.WIDTH-CV 13.2 % (11.8-14.6); RBC DIS.WIDTH-SD 46.3 % (39-53); RED BLOOD COUNT 3.64 M/uL (4.00-5.50); WHITE BLOOD COUNT 9.1 K/uL (4.1-10.2)
[2018-01-01 11:21] LABS: CHLORIDE 102 mEq/L (99-109); POTASSIUM 3.9 mEq/L (3.7-5.4); SODIUM 140 mEq/L (136-147)
[2018-01-01 11:23] LABS: GLUCOSE 147 mg/dL (70-99)
[2018-01-01 11:27] LABS: CREATININE 6.8 mg/dL (0.6-1.3); GFR ESTIMATE (CALCULATED) 9 mL/min/ (58.99-99999)
[2018-01-01 11:28] LABS: UREA NITROGEN (BUN) 54 mg/dL (9-23)
[2018-01-01 13:21] VITALS: BP 148/86
== END 2018-01-01 13:26 | disposition home or self-care (01) ==
LOC: EME 10:13
PROVIDERS: Emergency Medicine
DX: N18.9 Chronic kidney disease, unspecified (principal); J45.909 Unspecified asthma, uncomplicated; E11.40 Type 2 diabetes mellitus with diabetic neuropathy, unspecified; E11.22 Type 2 diabetes mellitus with diabetic chronic kidney disease; E78.5 Hyperlipidemia, unspecified; E03.9 Hypothyroidism, unspecified; F41.9 Anxiety disorder, unspecified; F32.9 Major depressive disorder, single episode, unspecified; Z79.4 Long term (current) use of insulin; Z79.82 Long term (current) use of aspirin; Z99.2 Dependence on renal dialysis; Z86.73 Personal history of transient ischemic attack (TIA), and cerebral infarction without residual deficits; Z89.422 Acquired absence of other left toe(s); Z89.421 Acquired absence of other right toe(s); Z88.8 Allergy status to other drugs, medicaments and biological substances
CPT/HCPCS: 70450; 71045; 80048; 85025; 93005; 99281; 99284

== ENCOUNTER 2018-01-29 10:19 | Inpatient (IN) | payer OTHER ==
[~2018-01-29] VITALS: Ht 170.2 cm; Wt 60.3 kg
[2018-01-29] VITALS (7 sets, daily range): BP systolic 142–193; BP diastolic 76–105
[~2018-01-29 10:19] MED LIST changes: -ENDOCET 5-3251 EACH PO; +HYDROCODON-ACE1 EAC8 PO
[2018-01-29 10:32] LABS: BASOPHIL (%) 0.3 % (0-1); BASOPHIL COUNT 0.1 K/uL (0-0.1); EOSINOPHIL (%) 0.5 % (0-5); EOSINOPHIL COUNT 0.1 K/uL (0-0.3); HEMATOCRIT 39.2 % (38.0-50.0); HEMOGLOBIN 12.9 G/DL (12.5-16.6); IMMATURE GRANULOCYTE (%) 0.6 % (0.0-0.7); LYMPHOCYTE (%) 3.5 % (15-42); LYMPHOCYTE COUNT 0.5 K/uL (1.0-2.8); MCH 30.6 PG (29.0-34.0); MCHC 32.9 G/DL (30.0-36.0); MCV 92.9 FL (86-99); MONOCYTE (%) 5.4 % (3-12); MONOCYTE COUNT 0.8 K/uL (0-0.8); NEUTROPHIL (%) 89.7 % (45-76); NEUTROPHIL COUNT 13.4 K/uL (1.8-6.4); PLATELET COUNT 201 K/uL (156-360); RBC DIS.WIDTH-CV 12.8 % (11.8-14.6); RBC DIS.WIDTH-SD 42.7 % (39-53); RED BLOOD COUNT 4.22 M/uL (4.00-5.50); WHITE BLOOD COUNT 14.9 K/uL (4.1-10.2)
[2018-01-29 10:45] LABS: CHLORIDE 92 mEq/L (99-109); POTASSIUM 4.9 mEq/L (3.7-5.4); SODIUM 132 mEq/L (136-147)
[2018-01-29 10:46] LABS: ALBUMIN 4.2 g/dL (3.2-4.8); MAGNESIUM 3.9 mg/dL (1.3-2.7)
[2018-01-29 10:48] LABS: GLUCOSE 172 mg/dL (70-99); TOTAL PROTEIN 7.4 g/dL (6.4-8.3)
[2018-01-29 10:50] LABS: TOTAL BILIRUBIN 0.5 mg/dL (0.0-1.0)
[2018-01-29 10:51] LABS: SERUM ETHYL ALCOHOL < 10 mg/dL
[2018-01-29 10:52] LABS: ALKALINE PHOSPHATASE 125 IU/L (3-129); CREATININE 8.3 mg/dL (0.6-1.3); GFR ESTIMATE (CALCULATED) 7 mL/min/ (58.99-99999)
[2018-01-29 10:53] LABS: AST (GOT) 24 IU/L (2-34); UREA NITROGEN (BUN) 42 mg/dL (9-23)
[2018-01-29 10:55] LABS: ALT (GPT) 22 IU/L (3-49); CREATINE KINASE 464 IU/L (1-294); TOTAL CK 464 IU/L (1-294)
[2018-01-29 10:57] LABS: TROP-I INTERPRETATION NEGATIVE; TROPONIN-I 0.01 ng/mL (0.0-0.30)
[2018-01-29 11:01] LABS: CK-MB 8.7 ng/mL (0.0-4.9); CKMB RELATIVE INDEX 1.9 (0.0-3.9)
[2018-01-29 11:49] LABS: AMPHETAMINE NEGATIVE (500 ng/mL); BARBITURATES NEGATIVE (200 ng/mL); BENZODIAZEPINES NEGATIVE (150 ng/mL); BUPRENORPHINE NEGATIVE (10 ng/mL); COCAINE NEGATIVE (150 ng/mL); METHADONE NEGATIVE (200 ng/mL); METHAMPHETAMINE NEGATIVE (500 ng/mL); OPIATES (MORPHINE) PRESUMPTIVE POSITIVE (100 ng/mL); OXYCODONE NEGATIVE (100 ng/mL); PHENCYCLIDINE NEGATIVE (25 ng/mL); PROPOXYPHENE NEGATIVE (300 ng/mL); THC CANNABINOIDS NEGATIVE (50 ng/mL); TRICYCLIC ANTIDEPRESSANTS NEGATIVE (300 ng/mL)
[2018-01-29 13:38] LABS: CHLORIDE 92 mEq/L (99-109); POTASSIUM 4.7 mEq/L (3.7-5.4); SODIUM 132 mEq/L (136-147)
[2018-01-29 13:39] LABS: GLUCOSE 161 mg/dL (70-99)
[2018-01-29 13:43] LABS: GFR ESTIMATE (CALCULATED) 8 mL/min/ (58.99-99999)
[2018-01-29 13:45] LABS: UREA NITROGEN (BUN) 41 mg/dL (9-23)
[2018-01-29 13:46] LABS: SALICYLATE < 5.0 MG/DL (15-30)
[2018-01-29 13:47] LABS: ACETAMINOPHEN (TYLENOL) < 10 mcg/mL (10-30); CREATINE KINASE 852 IU/L (1-294); TOTAL CK 852 IU/L (1-294)
[2018-01-29 13:49] LABS: TROP-I INTERPRETATION NEGATIVE; TROPONIN-I 0.02 ng/mL (0.0-0.30)
[2018-01-29 13:52] LABS: CKMB RELATIVE INDEX 1.4 (0.0-3.9)
[2018-01-29] MEDS ORDERED: BACLOFEN10 MG PO (16:25)
[2018-01-29] MEDS ORDERED: FERRIC CITRATE210 MG PO (16:25)
[2018-01-29] MEDS ORDERED: CLOPIDOGREL75 MG PO (16:27)
[2018-01-30] VITALS (23 sets, daily range): BP systolic 96–193; BP diastolic 52–127
[2018-01-30 08:48] LABS: BASOPHIL (%) 0.3 % (0-1); BASOPHIL COUNT 0.1 K/uL (0-0.1); EOSINOPHIL (%) 0 % (0-5); HEMATOCRIT 39.7 % (38.0-50.0); HEMOGLOBIN 13.2 G/DL (12.5-16.6); IMMATURE GRANULOCYTE (%) 0.8 % (0.0-0.7); LYMPHOCYTE (%) 2.5 % (15-42); LYMPHOCYTE COUNT 0.7 K/uL (1.0-2.8); MCH 30.8 PG (29.0-34.0); MCHC 33.2 G/DL (30.0-36.0); MCV 92.8 FL (86-99); MONOCYTE (%) 4.5 % (3-12); MONOCYTE COUNT 1.3 K/uL (0-0.8); NEUTROPHIL (%) 91.9 % (45-76); NEUTROPHIL COUNT 26.4 K/uL (1.8-6.4); PLATELET COUNT 198 K/uL (156-360); RBC DIS.WIDTH-CV 13.2 % (11.8-14.6); RBC DIS.WIDTH-SD 43.8 % (39-53); RED BLOOD COUNT 4.28 M/uL (4.00-5.50); WHITE BLOOD COUNT 28.8 K/uL (4.1-10.2)
[2018-01-30 09:36] LABS: ALBUMIN 3.9 g/dL (3.2-4.8); CHLORIDE 97 mEq/L (99-109); POTASSIUM 4.8 mEq/L (3.7-5.4); SODIUM 137 mEq/L (136-147)
[2018-01-30 09:37] LABS: MAGNESIUM 3.5 mg/dL (1.3-2.7)
[2018-01-30 09:39] LABS: GLUCOSE 125 mg/dL (70-99); TOTAL PROTEIN 6.6 g/dL (6.4-8.3)
[2018-01-30 09:41] LABS: TOTAL BILIRUBIN 0.5 mg/dL (0.0-1.0)
[2018-01-30 09:42] LABS: ALKALINE PHOSPHATASE 122 IU/L (3-129); CREATININE 8.3 mg/dL (0.6-1.3); GFR ESTIMATE (CALCULATED) 7 mL/min/ (58.99-99999); PHOSPHORUS 6.8 mg/dL (2.5-4.9)
[2018-01-30 09:44] LABS: AST (GOT) 22 IU/L (2-34); UREA NITROGEN (BUN) 53 mg/dL (9-23)
[2018-01-30 09:45] LABS: ALT (GPT) 20 IU/L (3-49)
[2018-01-30 13:24] LABS: HEPATITIS B SURFACE ANTIGEN Nonreactive
[2018-01-30 13:27] LABS: HEPATITIS B SURFACE ANTIBODY REACTIVE
[2018-01-31] VITALS (20 sets, daily range): BP systolic 105–179; BP diastolic 49–102
[2018-01-31 06:45] LABS: BASOPHIL (%) 0.5 % (0-1); BASOPHIL COUNT 0.1 K/uL (0-0.1); EOSINOPHIL (%) 0.3 % (0-5); EOSINOPHIL COUNT 0.1 K/uL (0-0.3); HEMATOCRIT 37.1 % (38.0-50.0); HEMOGLOBIN 11.9 G/DL (12.5-16.6); IMMATURE GRANULOCYTE (%) 1.2 % (0.0-0.7); LYMPHOCYTE (%) 3.8 % (15-42); LYMPHOCYTE COUNT 0.9 K/uL (1.0-2.8); MCH 30.4 PG (29.0-34.0); MCHC 32.1 G/DL (30.0-36.0); MCV 94.6 FL (86-99); MONOCYTE (%) 8.1 % (3-12); MONOCYTE COUNT 1.9 K/uL (0-0.8); NEUTROPHIL (%) 86.1 % (45-76); NEUTROPHIL COUNT 19.8 K/uL (1.8-6.4); PLATELET COUNT 191 K/uL (156-360); RBC DIS.WIDTH-CV 13.2 % (11.8-14.6); RBC DIS.WIDTH-SD 45.6 % (39-53); RED BLOOD COUNT 3.92 M/uL (4.00-5.50); WHITE BLOOD COUNT 22.9 K/uL (4.1-10.2)
[2018-01-31 07:12] LABS: ALBUMIN 3.3 G/DL (3.2-4.8); ALKALINE PHOSPHATASE 90 IU/L (3-129); ALT (GPT) 13 IU/L (3-49); AST (GOT) 20 IU/L (2-34); CHLORIDE 99 MEQ/L (99-109); GFR ESTIMATE (CALCULATED) 11 mL/min/ (58.99-99999); GLUCOSE 134 mg/dL (70-99); MAGNESIUM 2.8 mg/dl (1.3-2.7); PHOSPHORUS 5.5 mg/dL (2.5-4.9); POTASSIUM 4.2 MEQ/L (3.7-5.4); SODIUM 140 MEQ/L (136-147); TOTAL BILIRUBIN 0.4 MG/DL (0.0-1.0); TOTAL PROTEIN 5.9 G/DL (6.4-8.3); UREA NITROGEN (BUN) 38 mg/dL (9-23)
[2018-01-31 07:16] LABS: CREATININE 5.6 MG/DL (0.6-1.3)
[2018-02-01] VITALS (14 sets, daily range): BP systolic 116–156; BP diastolic 67–91
[2018-02-01 07:27] LABS: ALBUMIN 3.6 G/DL (3.2-4.8); ALKALINE PHOSPHATASE 86 IU/L (3-129); ALT (GPT) 13 IU/L (3-49); AST (GOT) 19 IU/L (2-34); CHLORIDE 96 MEQ/L (99-109); CREATININE 5.3 MG/DL (0.6-1.3); GFR ESTIMATE (CALCULATED) 12 mL/min/ (58.99-99999); GLUCOSE 136 mg/dL (70-99); MAGNESIUM 2.7 mg/dl (1.3-2.7); PHOSPHORUS 5.3 mg/dL (2.5-4.9); POTASSIUM 4.3 MEQ/L (3.7-5.4); SODIUM 139 MEQ/L (136-147); TOTAL PROTEIN 6.4 G/DL (6.4-8.3); UREA NITROGEN (BUN) 38 mg/dL (9-23)
[2018-02-01 07:29] LABS: BASOPHIL (%) 0.5 % (0-1); BASOPHIL COUNT 0.1 K/uL (0-0.1); EOSINOPHIL (%) 0.2 % (0-5); HEMATOCRIT 41.5 % (38.0-50.0); HEMOGLOBIN 12.9 G/DL (12.5-16.6); IMMATURE GRANULOCYTE (%) 1.2 % (0.0-0.7); LYMPHOCYTE COUNT 0.9 K/uL (1.0-2.8); MCH 30.8 PG (29.0-34.0); MCHC 31.1 G/DL (30.0-36.0); MONOCYTE (%) 10.8 % (3-12); MONOCYTE COUNT 1.9 K/uL (0-0.8); NEUTROPHIL (%) 82.3 % (45-76); NEUTROPHIL COUNT 14.2 K/uL (1.8-6.4); PLATELET COUNT 210 K/uL (156-360); RBC DIS.WIDTH-CV 13.2 % (11.8-14.6); RED BLOOD COUNT 4.19 M/uL (4.00-5.50); WHITE BLOOD COUNT 17.2 K/uL (4.1-10.2)
[2018-02-01 07:30] LABS: TOTAL BILIRUBIN 0.5 MG/DL (0.0-1.0)
[2018-02-02 02:22] VITALS: BP 127/67
[2018-02-02 04:00] VITALS: BP 132/65
[2018-02-02 06:00] LABS: ALBUMIN 3.3 G/DL (3.2-4.8); CHLORIDE 94 MEQ/L (99-109); GFR ESTIMATE (CALCULATED) 8 mL/min/ (58.99-99999); GLUCOSE 113 mg/dL (70-99); PHOSPHORUS 6.6 mg/dL (2.5-4.9); POTASSIUM 4.4 MEQ/L (3.7-5.4); SODIUM 139 MEQ/L (136-147); UREA NITROGEN (BUN) 57 mg/dL (9-23)
[2018-02-02 06:08] LABS: CREATININE 7.9 MG/DL (0.6-1.3)
[2018-02-02 08:00] VITALS: BP 123/58
[2018-02-02 12:25] LABS: BASOPHIL (%) 0.4 % (0-1); BASOPHIL COUNT 0.1 K/uL (0-0.1); EOSINOPHIL (%) 0.5 % (0-5); EOSINOPHIL COUNT 0.1 K/uL (0-0.3); HEMATOCRIT 34.9 % (38.0-50.0); IMMATURE GRANULOCYTE (%) 0.6 % (0.0-0.7); LYMPHOCYTE (%) 4.4 % (15-42); LYMPHOCYTE COUNT 0.8 K/uL (1.0-2.8); MCHC 31.5 G/DL (30.0-36.0); MCV 95.1 FL (86-99); MONOCYTE (%) 9.4 % (3-12); MONOCYTE COUNT 1.7 K/uL (0-0.8); NEUTROPHIL (%) 84.7 % (45-76); NEUTROPHIL COUNT 15.6 K/uL (1.8-6.4); PLATELET COUNT 232 K/uL (156-360); RBC DIS.WIDTH-CV 13.2 % (11.8-14.6); RBC DIS.WIDTH-SD 45.8 % (39-53); RED BLOOD COUNT 3.67 M/uL (4.00-5.50); WHITE BLOOD COUNT 18.4 K/uL (4.1-10.2)
[2018-02-02 16:00] VITALS: BP 160/86
[2018-02-02 20:00] VITALS: BP 176/88
[2018-02-03 01:10] VITALS: BP 166/59
[2018-02-03 04:02] VITALS: BP 131/58
[2018-02-03 07:03] LABS: HEMATOCRIT 39.7 % (38.0-50.0); HEMOGLOBIN 12.3 G/DL (12.5-16.6); MCH 29.8 PG (29.0-34.0); MCV 96.1 FL (86-99); PLATELET COUNT 267 K/uL (156-360); RBC DIS.WIDTH-CV 13.2 % (11.8-14.6); RBC DIS.WIDTH-SD 46.9 % (39-53); RED BLOOD COUNT 4.13 M/uL (4.00-5.50); WHITE BLOOD COUNT 16.8 K/uL (4.1-10.2)
[2018-02-03 07:32] LABS: ALBUMIN 3.8 G/DL (3.2-4.8); CHLORIDE 95 MEQ/L (99-109); GLUCOSE 115 mg/dL (70-99); POTASSIUM 4.2 MEQ/L (3.7-5.4); SODIUM 140 MEQ/L (136-147); UREA NITROGEN (BUN) 43 mg/dL (9-23)
[2018-02-03 07:39] LABS: CREATININE 5.9 MG/DL (0.6-1.3); GFR ESTIMATE (CALCULATED) 11 mL/min/ (58.99-99999); PHOSPHORUS 4.2 mg/dL (2.5-4.9)
[2018-02-03 07:43] VITALS: BP 178/79
[2018-02-03 15:02] VITALS: BP 184/87
[2018-02-03 23:43] VITALS: BP 164/81
[2018-02-04 06:24] LABS: HEMATOCRIT 36.8 % (38.0-50.0); HEMOGLOBIN 11.8 G/DL (12.5-16.6); MCH 29.6 PG (29.0-34.0); MCHC 32.1 G/DL (30.0-36.0); MCV 92.5 FL (86-99); PLATELET COUNT 243 K/uL (156-360); RBC DIS.WIDTH-SD 44.2 % (39-53); RED BLOOD COUNT 3.98 M/uL (4.00-5.50); WHITE BLOOD COUNT 15.4 K/uL (4.1-10.2)
[2018-02-04 06:47] LABS: ALBUMIN 3.5 G/DL (3.2-4.8); CHLORIDE 93 MEQ/L (99-109); PHOSPHORUS 3.9 mg/dL (2.5-4.9); POTASSIUM 3.9 MEQ/L (3.7-5.4); SODIUM 137 MEQ/L (136-147)
[2018-02-04 06:49] LABS: CREATININE 7.9 MG/DL (0.6-1.3); GFR ESTIMATE (CALCULATED) 8 mL/min/ (58.99-99999); GLUCOSE 193 mg/dL (70-99); UREA NITROGEN (BUN) 68 mg/dL (9-23)
[2018-02-04 06:57] VITALS: BP 183/85
[2018-02-04 14:57] VITALS: BP 129/65
[2018-02-04 16:59] LABS: BASE EXCESS -1.8 mEq/L (-3 to +3); BICARBONATE 23.1 mEq/L (22-26); CARBOXY HGB 2.3 % (0-5); COMMENTS - BLOOD GASES A+C+; FI02 0.21 %; METHEMOGLOBIN 1.4 % (0-1.5); PCO2 39 mm Hg (35-45); PO2 50 mm Hg (80-100); SITE RR; pH 7.38 (7.35-7.45)
[2018-02-04 17:32] LABS: APPEARANCE CLOUDY ((CLEAR)); BILIRUBIN NEGATIVE; BLOOD NEGATIVE; COLOR AMBER ((YELLOW)); GLUCOSE (STRIP) 50; KETONES 5; LEUKOCYTES NEGATIVE; NITRITE NEGATIVE; PROTEIN (STRIP) >=500; SPECIFIC GRAVITY 1.022 (1.000-1.030); UROBILINOGEN 0.2 MG/DL (0.2-1.0)
[2018-02-04 17:38] LABS: BACTERIA NONE SEEN /HPF; EPITHELIAL CELLS NONE SEEN /HPF; MUCUS TRACE /LPF; RED BLOOD CELLS 0-5 /HPF (0-5); UCUL ADDED? NO; WHITE BLOOD CELLS 0-5 /HPF (0-5)
[2018-02-05 00:07] VITALS: BP 117/76
[2018-02-05 01:04] LABS: HEMATOCRIT 35.2 % (38.0-50.0); HEMOGLOBIN 11.4 G/DL (12.5-16.6); MCH 30.5 PG (29.0-34.0); MCHC 32.4 G/DL (30.0-36.0); MCV 94.1 FL (86-99); PLATELET COUNT 218 K/uL (156-360); RBC DIS.WIDTH-CV 13.3 % (11.8-14.6); RBC DIS.WIDTH-SD 45.6 % (39-53); RED BLOOD COUNT 3.74 M/uL (4.00-5.50); WHITE BLOOD COUNT 19.7 K/uL (4.1-10.2)
[2018-02-05 01:21] LABS: ALBUMIN 3.4 g/dL (3.2-4.8); CHLORIDE 99 mEq/L (99-109); POTASSIUM 4.4 mEq/L (3.7-5.4); SODIUM 138 mEq/L (136-147)
[2018-02-05 01:24] LABS: GLUCOSE 184 mg/dL (70-99); TOTAL PROTEIN 6.3 g/dL (6.4-8.3)
[2018-02-05 01:26] LABS: TOTAL BILIRUBIN 0.5 mg/dL (0.0-1.0)
[2018-02-05 01:28] LABS: ALKALINE PHOSPHATASE 85 IU/L (3-129); CREATININE 10.3 mg/dL (0.6-1.3); GFR ESTIMATE (CALCULATED) 6 mL/min/ (58.99-99999)
[2018-02-05 01:29] LABS: DIRECT BILIRUBIN 0.2 mg/dL (0.0-0.3); UREA NITROGEN (BUN) 94 mg/dL (9-23)
[2018-02-05 01:30] LABS: ALT (GPT) 31 IU/L (3-49); AST (GOT) 34 IU/L (2-34)
[2018-02-05 03:25] LABS: ERTH.SED.RATE 86 MM/HR (0-20)
[2018-02-05 11:48] LABS: HIV-1/2 AB/AG COMBO Nonreactive
[2018-02-06 06:21] LABS: HEMATOCRIT 31.7 % (38.0-50.0); HEMOGLOBIN 10.1 G/DL (12.5-16.6); MCHC 31.9 G/DL (30.0-36.0); MCV 94.1 FL (86-99); PLATELET COUNT 200 K/uL (156-360); RBC DIS.WIDTH-CV 13.6 % (11.8-14.6); RED BLOOD COUNT 3.37 M/uL (4.00-5.50); WHITE BLOOD COUNT 12.8 K/uL (4.1-10.2)
[2018-02-06 06:42] LABS: CHLORIDE 97 MEQ/L (99-109); GFR ESTIMATE (CALCULATED) 9 mL/min/ (58.99-99999); GLUCOSE 159 mg/dL (70-99); POTASSIUM 4.1 MEQ/L (3.7-5.4); SODIUM 137 MEQ/L (136-147); UREA NITROGEN (BUN) 58 mg/dL (9-23)
[2018-02-06 06:43] LABS: CREATININE 7.1 MG/DL (0.6-1.3)
[2018-02-06 07:55] VITALS: BP 132/71
[2018-02-06 16:19] VITALS: BP 128/69
[2018-02-06 23:10] VITALS: BP 127/69
[2018-02-07 03:24] VITALS: BP 91/46
[2018-02-07 06:56] LABS: BASOPHIL (%) 0.4 % (0-1); BASOPHIL COUNT 0.1 K/uL (0-0.1); EOSINOPHIL (%) 1.3 % (0-5); EOSINOPHIL COUNT 0.2 K/uL (0-0.3); HEMATOCRIT 27.7 % (38.0-50.0); HEMOGLOBIN 8.9 G/DL (12.5-16.6); IMMATURE GRANULOCYTE (%) 1.6 % (0.0-0.7); LYMPHOCYTE (%) 7.4 % (15-42); LYMPHOCYTE COUNT 1.1 K/uL (1.0-2.8); MCH 30.4 PG (29.0-34.0); MCHC 32.1 G/DL (30.0-36.0); MCV 94.5 FL (86-99); MONOCYTE (%) 7.9 % (3-12); MONOCYTE COUNT 1.1 K/uL (0-0.8); NEUTROPHIL (%) 81.4 % (45-76); NEUTROPHIL COUNT 11.5 K/uL (1.8-6.4); PLATELET COUNT 240 K/uL (156-360); RBC DIS.WIDTH-CV 13.5 % (11.8-14.6); RBC DIS.WIDTH-SD 46.5 % (39-53); RED BLOOD COUNT 2.93 M/uL (4.00-5.50); WHITE BLOOD COUNT 14.1 K/uL (4.1-10.2)
[2018-02-07 07:24] LABS: CHLORIDE 96 MEQ/L (99-109); CREATININE 9.3 MG/DL (0.6-1.3); GFR ESTIMATE (CALCULATED) 6 mL/min/ (58.99-99999); GLUCOSE 217 mg/dL (70-99); POTASSIUM 4.6 MEQ/L (3.7-5.4); SODIUM 135 MEQ/L (136-147); UREA NITROGEN (BUN) 79 mg/dL (9-23); VANCOMYCIN, TROUGH 26.6 MCG/ML (10-20)
[2018-02-07 07:56] VITALS: BP 96/54
[2018-02-07 13:50] VITALS: BP 133/63
[2018-02-07 15:19] VITALS: BP 133/63
[2018-02-07 18:00] VITALS: BP 133/63
[2018-02-08 00:24] VITALS: BP 125/69
[2018-02-08 07:55] VITALS: BP 126/64
[2018-02-08 15:44] VITALS: BP 109/64
[2018-02-09 00:42] VITALS: BP 147/76
[2018-02-09 07:08] VITALS: BP 142/78
[2018-02-09 08:11] LABS: BASOPHIL (%) 0.5 % (0-1); BASOPHIL COUNT 0.1 K/uL (0-0.1); EOSINOPHIL (%) 2.1 % (0-5); EOSINOPHIL COUNT 0.3 K/uL (0-0.3); HEMOGLOBIN 9.3 G/DL (12.5-16.6); IMMATURE GRANULOCYTE (%) 1.2 % (0.0-0.7); LYMPHOCYTE COUNT 1.2 K/uL (1.0-2.8); MCH 29.8 PG (29.0-34.0); MCHC 33.2 G/DL (30.0-36.0); NEUTROPHIL (%) 79.2 % (45-76); NEUTROPHIL COUNT 10.3 K/uL (1.8-6.4); PLATELET COUNT 254 K/uL (156-360); RBC DIS.WIDTH-SD 42.2 % (39-53); RED BLOOD COUNT 3.12 M/uL (4.00-5.50); WHITE BLOOD COUNT 13.1 K/uL (4.1-10.2)
[2018-02-09 08:20] LABS: CHLORIDE 93 MEQ/L (99-109); GLUCOSE 213 mg/dL (70-99); SODIUM 135 MEQ/L (136-147); UREA NITROGEN (BUN) 48 mg/dL (9-23)
[2018-02-09 08:24] LABS: CREATININE 7.3 MG/DL (0.6-1.3); GFR ESTIMATE (CALCULATED) 8 mL/min/ (58.99-99999); POTASSIUM 3.6 MEQ/L (3.7-5.4)
[2018-02-09 08:36] LABS: MCV 89.7 FL (86-99)
[2018-02-09 18:00] VITALS: BP 118/64
[2018-02-09 23:55] VITALS: BP 115/56
[2018-02-10 06:47] LABS: BASOPHIL (%) 0.6 % (0-1); BASOPHIL COUNT 0.1 K/uL (0-0.1); EOSINOPHIL (%) 1.6 % (0-5); EOSINOPHIL COUNT 0.2 K/uL (0-0.3); IMMATURE GRANULOCYTE (%) 3.7 % (0.0-0.7); LYMPHOCYTE (%) 9.2 % (15-42); LYMPHOCYTE COUNT 1.4 K/uL (1.0-2.8); MCH 29.8 PG (29.0-34.0); MCHC 32.3 G/DL (30.0-36.0); MCV 92.3 FL (86-99); MONOCYTE (%) 9.2 % (3-12); MONOCYTE COUNT 1.4 K/uL (0-0.8); NEUTROPHIL (%) 75.7 % (45-76); NEUTROPHIL COUNT 11.7 K/uL (1.8-6.4); PLATELET COUNT 255 K/uL (156-360); RED BLOOD COUNT 3.36 M/uL (4.00-5.50); WHITE BLOOD COUNT 15.4 K/uL (4.1-10.2)
[2018-02-10 07:13] LABS: CHLORIDE 95 MEQ/L (99-109); GFR ESTIMATE (CALCULATED) 11 mL/min/ (58.99-99999); GLUCOSE 200 mg/dL (70-99); POTASSIUM 4.1 MEQ/L (3.7-5.4); SODIUM 136 MEQ/L (136-147); UREA NITROGEN (BUN) 30 mg/dL (9-23)
[2018-02-10 07:14] LABS: CREATININE 5.7 MG/DL (0.6-1.3)
[2018-02-10 08:02] VITALS: BP 121/60
[2018-02-10] MEDS ORDERED: ANCEF,KEFZOL1 GM IV (14:49)
[2018-02-10] MEDS ORDERED: ASPIR-LOW81 MG PO (14:50)
[2018-02-10] MEDS ORDERED: LEVETIRACETAM500 MG PO (14:51)
[2018-02-10] MEDS ORDERED: HYDROCODON-ACE1 EAC8 PO (14:57)
[2018-02-10 15:33] VITALS: BP 113/62
== END 2018-02-10 19:25 | DRG 871 ==
LOC: EME 10:19 → EDOF 13:24 → 5SOUTH 13:24 → 4WEST 13:24 → ENRESERV 13:25 → 4WEST 14:13 → ENRESERV 02-01 09:21 → 5SOUTH 02-01 14:06
PROVIDERS: Emergency Medicine; Hospitalist; Internal Medicine; Internal Medicine Critical Care Medicine; Internal Medicine Nephrology
DX: A40.0 Sepsis due to streptococcus, group A (principal); T80.211A Bloodstream infection due to central venous catheter, initial encounter; G93.40 Encephalopathy, unspecified; I63.9 Cerebral infarction, unspecified; G40.409 Other generalized epilepsy and epileptic syndromes, not intractable, without status epilepticus; I12.0 Hypertensive chronic kidney disease with stage 5 chronic kidney disease or end stage renal disease; I16.1 Hypertensive emergency; R13.10 Dysphagia, unspecified; E87.2 Acidosis; D64.9 Anemia, unspecified; N18.6 End stage renal disease; E11.22 Type 2 diabetes mellitus with diabetic chronic kidney disease; M19.90 Unspecified osteoarthritis, unspecified site; E03.9 Hypothyroidism, unspecified; E11.42 Type 2 diabetes mellitus with diabetic polyneuropathy; W19.XXXA Unspecified fall, initial encounter; E78.5 Hyperlipidemia, unspecified; J45.909 Unspecified asthma, uncomplicated; R32 Unspecified urinary incontinence; Z89.431 Acquired absence of right foot; Z99.2 Dependence on renal dialysis; Z79.891 Long term (current) use of opiate analgesic; Z72.0 Tobacco use; Z79.4 Long term (current) use of insulin; Z79.899 Other long term (current) drug therapy; Z79.82 Long term (current) use of aspirin; Z86.73 Personal history of transient ischemic attack (TIA), and cerebral infarction without residual deficits; Z89.432 Acquired absence of left foot; Z82.3 Family history of stroke
CPT/HCPCS: 36600; 70450; 71045; 73560; 74230; 80047; 80048; 80048 91; 80053; 80069; 80076; 80202; 81003; 82140; 82550; 82550 91; 82553; 82803; 82948; 83605; 83735; 84100; 84439; 84443; 84484; 84999; 85025; 85027; 85652; 86706; 87040; 87077; 87186; 87340; 87389; 87502; 87641; 87801; 92526 GN; 92610 GN; 92611 GN; 93005; 93306; 94799; 95819; 97530 GO; 97530 GP; 99281; 99285; G0480; J0360; J0456; J0690; J0692; J1165; J1644; J1885; J1953; J2310; J3370; J7030; J7050; J7120

== ENCOUNTER 2018-02-28 09:05 | Inpatient (IN) | payer OTHER ==
[~2018-02-28] VITALS: Ht 162.6 cm; Wt 67.6 kg
[2018-02-28] VITALS (15 sets, daily range): BP systolic 112–223; BP diastolic 74–121
[~2018-02-28 09:05] MED LIST changes: +ANCEF,KEFZOL1 GM IV; +ASPIR-LOW81 MG PO; +FERRIC CITRATE210 MG PO; +LEVETIRACETAM500 MG PO
[2018-02-28 09:40] LABS: BASOPHIL (%) 0.5 % (0-1); EOSINOPHIL (%) 1.8 % (0-5); EOSINOPHIL COUNT 0.1 K/uL (0-0.3); HEMATOCRIT 27.7 % (38.0-50.0); HEMOGLOBIN 9.7 G/DL (12.5-16.6); IMMATURE GRANULOCYTE (%) 0.8 % (0.0-0.7); MCH 30.8 PG (29.0-34.0); MCV 87.9 FL (86-99); MONOCYTE (%) 9.7 % (3-12); MONOCYTE COUNT 0.6 K/uL (0-0.8); NEUTROPHIL (%) 72.2 % (45-76); NEUTROPHIL COUNT 4.8 K/uL (1.8-6.4); PLATELET COUNT 218 K/uL (156-360); RBC DIS.WIDTH-SD 44.9 % (39-53); RED BLOOD COUNT 3.15 M/uL (4.00-5.50); WHITE BLOOD COUNT 6.6 K/uL (4.1-10.2)
[2018-02-28 09:45] LABS: AMYLASE 89 IU/L (1-118); CHLORIDE 87 mEq/L (99-109); POTASSIUM 4.4 mEq/L (3.7-5.4); PTT 28.4 SEC (25-37); SODIUM 127 mEq/L (136-147)
[2018-02-28 09:47] LABS: GLUCOSE 107 mg/dL (70-99)
[2018-02-28 09:50] LABS: SERUM ETHYL ALCOHOL < 10 mg/dL
[2018-02-28 09:51] LABS: CREATININE 5.2 mg/dL (0.6-1.3); GFR ESTIMATE (CALCULATED) 12 mL/min/ (58.99-99999)
[2018-02-28 09:52] LABS: UREA NITROGEN (BUN) 40 mg/dL (9-23)
[2018-02-28 09:54] LABS: LIPASE 56 U/L (1.0-51.0)
[2018-02-28 10:07] LABS: TROP-I INTERPRETATION NEGATIVE; TROPONIN-I 0.03 ng/mL (0.0-0.30)
[2018-03-01] VITALS (26 sets, daily range): BP systolic 125–170; BP diastolic 60–98
[2018-03-01 05:36] LABS: HEMOGLOBIN 9.3 G/DL (12.5-16.6); MCH 29.6 PG (29.0-34.0); MCHC 33.2 G/DL (30.0-36.0); MCV 89.2 FL (86-99); PLATELET COUNT 201 K/uL (156-360); RBC DIS.WIDTH-SD 45.5 % (39-53); RED BLOOD COUNT 3.14 M/uL (4.00-5.50); WHITE BLOOD COUNT 6.8 K/uL (4.1-10.2)
[2018-03-01 05:57] LABS: CHLORIDE 98 MEQ/L (99-109); GLUCOSE 112 mg/dL (70-99); POTASSIUM 3.9 MEQ/L (3.7-5.4)
[2018-03-01 06:14] LABS: CREATININE 3.2 MG/DL (0.6-1.3); GFR ESTIMATE (CALCULATED) 22 mL/min/ (58.99-99999); SODIUM 134 MEQ/L (136-147); UREA NITROGEN (BUN) 19 mg/dL (9-23)
[2018-03-01 11:47] LABS: HEPATITIS B SURFACE ANTIGEN Nonreactive
[2018-03-01 11:55] LABS: HEPATITIS B SURFACE ANTIBODY REACTIVE
[2018-03-01] MEDS ORDERED: ENDOCET 5-3251 EACH PO (14:01)
[2018-03-01] MEDS ORDERED: COLACE100 MG PO (14:03)
[2018-03-01] MEDS ORDERED: CATAPRES0.2 MG PO (14:04)
[2018-03-02] VITALS (21 sets, daily range): BP systolic 13–167; BP diastolic 62–81
[2018-03-02 09:40] LABS: BASOPHIL (%) 0.9 % (0-1); BASOPHIL COUNT 0.1 K/uL (0-0.1); EOSINOPHIL (%) 2.1 % (0-5); EOSINOPHIL COUNT 0.2 K/uL (0-0.3); HEMATOCRIT 25.5 % (38.0-50.0); HEMOGLOBIN 8.5 G/DL (12.5-16.6); IMMATURE GRANULOCYTE (%) 0.5 % (0.0-0.7); LYMPHOCYTE COUNT 1.2 K/uL (1.0-2.8); MCH 30.2 PG (29.0-34.0); MCHC 33.3 G/DL (30.0-36.0); MCV 90.7 FL (86-99); MONOCYTE (%) 11.2 % (3-12); MONOCYTE COUNT 1.1 K/uL (0-0.8); NEUTROPHIL (%) 72.3 % (45-76); NEUTROPHIL COUNT 6.9 K/uL (1.8-6.4); PLATELET COUNT 192 K/uL (156-360); RBC DIS.WIDTH-CV 14.3 % (11.8-14.6); RBC DIS.WIDTH-SD 47.3 % (39-53); RED BLOOD COUNT 2.81 M/uL (4.00-5.50); WHITE BLOOD COUNT 9.5 K/uL (4.1-10.2)
[2018-03-02 10:06] LABS: CHLORIDE 92 MEQ/L (99-109); PHOSPHORUS 4.3 mg/dL (2.5-4.9); POTASSIUM 3.8 MEQ/L (3.7-5.4); SODIUM 128 MEQ/L (136-147); UREA NITROGEN (BUN) 27 mg/dL (9-23)
[2018-03-02 10:18] LABS: CREATININE 4.5 MG/DL (0.6-1.3); GFR ESTIMATE (CALCULATED) 15 mL/min/ (58.99-99999); GLUCOSE 193 mg/dL (70-99)
[2018-03-03 03:45] VITALS: BP 133/63
[2018-03-03 05:52] LABS: BASOPHIL (%) 0.9 % (0-1); BASOPHIL COUNT 0.1 K/uL (0-0.1); EOSINOPHIL (%) 2.6 % (0-5); EOSINOPHIL COUNT 0.2 K/uL (0-0.3); HEMATOCRIT 24.5 % (38.0-50.0); HEMOGLOBIN 8.1 G/DL (12.5-16.6); IMMATURE GRANULOCYTE (%) 0.3 % (0.0-0.7); LYMPHOCYTE (%) 12.5 % (15-42); LYMPHOCYTE COUNT 1.1 K/uL (1.0-2.8); MCH 30.1 PG (29.0-34.0); MCHC 33.1 G/DL (30.0-36.0); MCV 91.1 FL (86-99); MONOCYTE (%) 13.4 % (3-12); MONOCYTE COUNT 1.2 K/uL (0-0.8); NEUTROPHIL (%) 70.3 % (45-76); NEUTROPHIL COUNT 6.2 K/uL (1.8-6.4); PLATELET COUNT 203 K/uL (156-360); RBC DIS.WIDTH-CV 14.5 % (11.8-14.6); RBC DIS.WIDTH-SD 47.8 % (39-53); RED BLOOD COUNT 2.69 M/uL (4.00-5.50); WHITE BLOOD COUNT 8.8 K/uL (4.1-10.2)
[2018-03-03 06:22] LABS: CHLORIDE 98 MEQ/L (99-109); CREATININE 3.4 MG/DL (0.6-1.3); GFR ESTIMATE (CALCULATED) 20 mL/min/ (58.99-99999); GLUCOSE 126 mg/dL (70-99); POTASSIUM 4.3 MEQ/L (3.7-5.4); SODIUM 135 MEQ/L (136-147); UREA NITROGEN (BUN) 17 mg/dL (9-23)
[2018-03-03 07:28] VITALS: BP 134/71
[2018-03-03] MEDS ORDERED: NICOTINE PATCH1 EAC2 TD (10:48)
[2018-03-03 11:35] VITALS: BP 124/78
== END 2018-03-03 14:07 | disposition home health service (06) | DRG 100 ==
LOC: EME → EDBD 09:05 → EME 09:05 → 4WEST 10:32 → EDOF 10:32 → ENRESERV 10:33 → 4WEST 11:06 → ENRESERV 03-02 14:51 → 4EAST 03-02 17:22 → ENPENDDIS 03-03 → 4EAST 03-03 09:34
PROVIDERS: Emergency Medicine; Internal Medicine; Internal Medicine Critical Care Medicine; Internal Medicine Nephrology
PROC: 5A1D70Z Performance of Urinary Filtration, Intermittent, Less than 6 Hours Per Day (ICD-10-PCS; principal; 2018-02-28)
DX: G40.909 Epilepsy, unspecified, not intractable, without status epilepticus (principal); I67.4 Hypertensive encephalopathy; I16.1 Hypertensive emergency; I12.0 Hypertensive chronic kidney disease with stage 5 chronic kidney disease or end stage renal disease; E11.22 Type 2 diabetes mellitus with diabetic chronic kidney disease; N18.6 End stage renal disease; Z99.2 Dependence on renal dialysis; E11.40 Type 2 diabetes mellitus with diabetic neuropathy, unspecified; E87.1 Hypo-osmolality and hyponatremia; D63.1 Anemia in chronic kidney disease; E03.9 Hypothyroidism, unspecified; M19.90 Unspecified osteoarthritis, unspecified site; J45.909 Unspecified asthma, uncomplicated; E78.5 Hyperlipidemia, unspecified; F10.10 Alcohol abuse, uncomplicated; F32.9 Major depressive disorder, single episode, unspecified; F41.9 Anxiety disorder, unspecified; Z86.73 Personal history of transient ischemic attack (TIA), and cerebral infarction without residual deficits; Z91.14 Patient's other noncompliance with medication regimen; Z79.4 Long term (current) use of insulin; Z79.82 Long term (current) use of aspirin; Z79.02 Long term (current) use of antithrombotics/antiplatelets; Z79.899 Other long term (current) drug therapy; Z89.432 Acquired absence of left foot; Z89.431 Acquired absence of right foot
CPT/HCPCS: 70450; 71045; 80047; 80048; 81003; 82150; 82948; 83605; 83690; 83735; 84100; 84443; 84484; 85025; 85027; 85610; 85730; 86706; 86850; 86900; 86901; 87340; 87641; 93005; 99281; 99285; G0480; J1630; J1644; J1953; J2060; J2310; J7030; J7050

== ENCOUNTER 2018-05-05 20:51 | Emergency (ER) | payer OTHER ==
[~2018-05-05] VITALS: Ht 167.6 cm; Wt 52.0 kg
[~2018-05-05 20:51] MED LIST changes: +ENDOCET 5-3251 EACH PO; +NICOTINE PATCH1 EAC2 TD
[2018-05-05 22:49] VITALS: BP 194/108
== END 2018-05-05 22:49 | disposition home or self-care (01) ==
LOC: EME → EDBD 20:51 → EME 20:51
DX: S80.212A Abrasion, left knee, initial encounter (principal); S80.211A Abrasion, right knee, initial encounter; S60.512A Abrasion of left hand, initial encounter; S60.511A Abrasion of right hand, initial encounter; W01.0XXA Fall on same level from slipping, tripping and stumbling without subsequent striking against object, initial encounter; I12.0 Hypertensive chronic kidney disease with stage 5 chronic kidney disease or end stage renal disease; N18.6 End stage renal disease; Z99.2 Dependence on renal dialysis; E11.9 Type 2 diabetes mellitus without complications; J45.909 Unspecified asthma, uncomplicated; E78.5 Hyperlipidemia, unspecified; E03.9 Hypothyroidism, unspecified; R56.9 Unspecified convulsions; F41.9 Anxiety disorder, unspecified; F32.9 Major depressive disorder, single episode, unspecified; Z86.73 Personal history of transient ischemic attack (TIA), and cerebral infarction without residual deficits; Z79.4 Long term (current) use of insulin; Z88.1 Allergy status to other antibiotic agents; Z91.040 Latex allergy status
CPT/HCPCS: 99281; 99284

== ENCOUNTER 2018-05-06 14:33 | Inpatient (IN) | payer OTHER ==
[~2018-05-06] VITALS: Ht 165.1 cm; Wt 41.0 kg
[~2018-05-06 14:33] MED LIST changes: -CARDURA2 M1 PO; -ENDOCET 5-3251 EACH PO; -JANUVIA100 MG PO; -SYNTHROID75 MCG PO
[2018-05-06 15:41] LABS: BASOPHIL (%) 0.4 % (0-1); BASOPHIL COUNT 0.1 K/uL (0-0.1); EOSINOPHIL (%) 0.5 % (0-5); EOSINOPHIL COUNT 0.1 K/uL (0-0.3); HEMATOCRIT 38.5 % (38.0-50.0); HEMOGLOBIN 13.2 G/DL (12.5-16.6); IMMATURE GRANULOCYTE (%) 0.8 % (0.0-0.7); LYMPHOCYTE (%) 5.1 % (15-42); LYMPHOCYTE COUNT 0.7 K/uL (1.0-2.8); MCHC 34.3 G/DL (30.0-36.0); MCV 90.4 FL (86-99); MONOCYTE (%) 5.3 % (3-12); MONOCYTE COUNT 0.8 K/uL (0-0.8); NEUTROPHIL (%) 87.9 % (45-76); NEUTROPHIL COUNT 12.5 K/uL (1.8-6.4); PLATELET COUNT 153 K/uL (156-360); RBC DIS.WIDTH-CV 14.9 % (11.8-14.6); RBC DIS.WIDTH-SD 49.5 % (39-53); RED BLOOD COUNT 4.26 M/uL (4.00-5.50); WHITE BLOOD COUNT 14.2 K/uL (4.1-10.2)
[2018-05-06 15:52] LABS: CHLORIDE 87 mEq/L (99-109); POTASSIUM 3.6 mEq/L (3.7-5.4); SODIUM 128 mEq/L (136-147)
[2018-05-06 15:54] LABS: PTT 28.4 SEC (25-37)
[2018-05-06 15:55] LABS: GLUCOSE 80 mg/dL (70-99); TOTAL PROTEIN 6.9 g/dL (6.4-8.3)
[2018-05-06 15:57] LABS: TOTAL BILIRUBIN 0.8 mg/dL (0.0-1.0)
[2018-05-06 15:58] LABS: ALKALINE PHOSPHATASE 97 IU/L (3-129); CREATININE 5.3 mg/dL (0.6-1.3); GFR ESTIMATE (CALCULATED) 12 mL/min/ (58.99-99999); SERUM ETHYL ALCOHOL < 10 mg/dL
[2018-05-06 16:00] LABS: AST (GOT) 46 IU/L (2-34); UREA NITROGEN (BUN) 42 mg/dL (9-23)
[2018-05-06 16:01] LABS: ALT (GPT) 23 IU/L (3-49)
[2018-05-06 16:02] LABS: LIPASE 35 U/L (1.0-51.0)
[2018-05-06 16:04] LABS: TROP-I INTERPRETATION NEGATIVE; TROPONIN-I 0.04 ng/mL (0.0-0.30)
[2018-05-06 16:13] LABS: COMMENTS - BLOOD GASES A+C+; SITE LEFT RAD
[2018-05-06 16:14] LABS: DEVICE VENT; FI02 50 %; MECHANICAL RATE 16 resp/min; MODE AC; PCO2 32 mm Hg (35-45); PEEP 5 CM/H20; PO2 208 mm Hg (80-100); TIDAL VOLUME 500 ML; TOTAL RESP RATE 17 resp/min; pH 7.44 (7.35-7.45)
[2018-05-06 16:15] LABS: BASE EXCESS -1.8 mEq/L (-3 to +3); BICARBONATE 21.7 mEq/L (22-26); CARBOXY HGB 1.6 % (0-5); METHEMOGLOBIN 1.1 % (0-1.5)
[2018-05-06 16:55] LABS: APPEARANCE ND ((CLEAR)); BILIRUBIN ND; COLOR ND ((YELLOW)); GLUCOSE (STRIP) ND; KETONES ND; LEUKOCYTES ND; NITRITE ND; PH, URINE ND (5-8); PROTEIN (STRIP) ND; SPECIFIC GRAVITY ND (1.000-1.030); UROBILINOGEN ND MG/DL (0.2-1.0)
[2018-05-06 16:56] LABS: BLOOD ND; UCUL ADDED? ND
[2018-05-06 17:12] LABS: APPEARANCE CLEAR ((CLEAR)); BILIRUBIN NEGATIVE; BLOOD NEGATIVE; COLOR YELLOW ((YELLOW)); GLUCOSE (STRIP) 50; KETONES 5; LEUKOCYTES NEGATIVE; NITRITE NEGATIVE; PROTEIN (STRIP) >=500; SPECIFIC GRAVITY 1.014 (1.000-1.030); UROBILINOGEN 0.2 MG/DL (0.2-1.0)
[2018-05-06 17:20] LABS: BACTERIA NONE SEEN /HPF; EPITHELIAL CELLS NONE SEEN /HPF; MUCUS NONE SEEN /LPF; RED BLOOD CELLS 0-5 /HPF (0-5); UCUL ADDED? NO; WHITE BLOOD CELLS 0-5 /HPF (0-5)
[2018-05-06 17:20] LABS: AMPHETAMINE NEGATIVE (500 ng/mL); BARBITURATES NEGATIVE (200 ng/mL); BENZODIAZEPINES NEGATIVE (150 ng/mL); BUPRENORPHINE NEGATIVE (10 ng/mL); COCAINE NEGATIVE (150 ng/mL); METHADONE NEGATIVE (200 ng/mL); METHAMPHETAMINE NEGATIVE (500 ng/mL); OPIATES (MORPHINE) NEGATIVE (100 ng/mL); OXYCODONE PRESUMPTIVE POSITIVE (100 ng/mL); PHENCYCLIDINE NEGATIVE (25 ng/mL); PROPOXYPHENE NEGATIVE (300 ng/mL); THC CANNABINOIDS NEGATIVE (50 ng/mL); TRICYCLIC ANTIDEPRESSANTS NEGATIVE (300 ng/mL)
[2018-05-06 22:50] VITALS: BP 167/82
[2018-05-06 23:00] VITALS: BP 143/77
[2018-05-07] VITALS (25 sets, daily range): BP systolic 104–178; BP diastolic 56–97
[2018-05-07 05:28] LABS: COMMENTS - BLOOD GASES C+A+; DEVICE VENT; SITE RR
[2018-05-07 05:29] LABS: BASE EXCESS -6.8 mEq/L (-3 to +3); BICARBONATE 16.9 mEq/L (22-26); CARBOXY HGB 1.3 % (0-5); FI02 30 %; MECHANICAL RATE 16 resp/min; METHEMOGLOBIN 1.2 % (0-1.5); MODE AC; PCO2 28 mm Hg (35-45); PEEP 5 CM/H20; PO2 140 mm Hg (80-100); TIDAL VOLUME 500 ML; TOTAL RESP RATE 18 resp/min; pH 7.39 (7.35-7.45)
[2018-05-07 06:16] LABS: BASOPHIL COUNT 0.1 K/uL (0-0.1); EOSINOPHIL (%) 3.1 % (0-5); EOSINOPHIL COUNT 0.3 K/uL (0-0.3); HEMATOCRIT 34.3 % (38.0-50.0); HEMOGLOBIN 11.7 G/DL (12.5-16.6); IMMATURE GRANULOCYTE (%) 0.5 % (0.0-0.7); LYMPHOCYTE (%) 9.4 % (15-42); LYMPHOCYTE COUNT 0.8 K/uL (1.0-2.8); MCH 30.8 PG (29.0-34.0); MCHC 34.1 G/DL (30.0-36.0); MCV 90.3 FL (86-99); MONOCYTE (%) 8.2 % (3-12); MONOCYTE COUNT 0.7 K/uL (0-0.8); NEUTROPHIL (%) 77.8 % (45-76); NEUTROPHIL COUNT 6.5 K/uL (1.8-6.4); PLATELET COUNT 124 K/uL (156-360); RBC DIS.WIDTH-CV 15.2 % (11.8-14.6); RBC DIS.WIDTH-SD 50.4 % (39-53); WHITE BLOOD COUNT 8.4 K/uL (4.1-10.2)
[2018-05-07 06:41] LABS: CHLORIDE 95 MEQ/L (99-109); CREATININE 5.2 MG/DL (0.6-1.3); GFR ESTIMATE (CALCULATED) 12 mL/min/ (58.99-99999); GLUCOSE 68 mg/dL (70-99); MAGNESIUM 2.2 mg/dl (1.3-2.7); PHOSPHORUS 3.6 mg/dL (2.5-4.9); POTASSIUM 2.9 MEQ/L (3.7-5.4); SODIUM 131 MEQ/L (136-147); TRIGLYCERIDES 166 MG/DL (Normal: <150); UREA NITROGEN (BUN) 45 mg/dL (9-23)
[2018-05-08] VITALS (24 sets, daily range): BP systolic 128–172; BP diastolic 63–103
[2018-05-08 05:48] LABS: BASOPHIL (%) 0.7 % (0-1); BASOPHIL COUNT 0.1 K/uL (0-0.1); EOSINOPHIL (%) 2.4 % (0-5); EOSINOPHIL COUNT 0.2 K/uL (0-0.3); HEMATOCRIT 34.5 % (38.0-50.0); HEMOGLOBIN 11.4 G/DL (12.5-16.6); IMMATURE GRANULOCYTE (%) 0.5 % (0.0-0.7); LYMPHOCYTE (%) 6.9 % (15-42); LYMPHOCYTE COUNT 0.6 K/uL (1.0-2.8); MCH 30.5 PG (29.0-34.0); MCV 92.2 FL (86-99); MONOCYTE (%) 9.8 % (3-12); MONOCYTE COUNT 0.9 K/uL (0-0.8); NEUTROPHIL (%) 79.7 % (45-76); NEUTROPHIL COUNT 6.9 K/uL (1.8-6.4); PLATELET COUNT 142 K/uL (156-360); RBC DIS.WIDTH-CV 15.4 % (11.8-14.6); RBC DIS.WIDTH-SD 52.3 % (39-53); RED BLOOD COUNT 3.74 M/uL (4.00-5.50); WHITE BLOOD COUNT 8.7 K/uL (4.1-10.2)
[2018-05-08 06:11] LABS: CHLORIDE 94 MEQ/L (99-109); CREATININE 3.8 MG/DL (0.6-1.3); GFR ESTIMATE (CALCULATED) 18 mL/min/ (58.99-99999); GLUCOSE 67 mg/dL (70-99); MAGNESIUM 2.2 mg/dl (1.3-2.7); PHOSPHORUS 3.5 mg/dL (2.5-4.9); POTASSIUM 3.2 MEQ/L (3.7-5.4); SODIUM 136 MEQ/L (136-147); UREA NITROGEN (BUN) 20 mg/dL (9-23)
[2018-05-09] VITALS (26 sets, daily range): BP systolic 110–156; BP diastolic 7–82
[2018-05-09 05:23] LABS: BASOPHIL (%) 0.7 % (0-1); BASOPHIL COUNT 0.1 K/uL (0-0.1); EOSINOPHIL (%) 4.9 % (0-5); EOSINOPHIL COUNT 0.4 K/uL (0-0.3); HEMATOCRIT 34.3 % (38.0-50.0); HEMOGLOBIN 11.4 G/DL (12.5-16.6); IMMATURE GRANULOCYTE (%) 0.5 % (0.0-0.7); LYMPHOCYTE COUNT 0.7 K/uL (1.0-2.8); MCH 30.3 PG (29.0-34.0); MCHC 33.2 G/DL (30.0-36.0); MCV 91.2 FL (86-99); MONOCYTE (%) 9.9 % (3-12); MONOCYTE COUNT 0.8 K/uL (0-0.8); NEUTROPHIL COUNT 6.1 K/uL (1.8-6.4); PLATELET COUNT 129 K/uL (156-360); RBC DIS.WIDTH-SD 50.6 % (39-53); RED BLOOD COUNT 3.76 M/uL (4.00-5.50); WHITE BLOOD COUNT 8.1 K/uL (4.1-10.2)
[2018-05-09 05:56] LABS: CHLORIDE 97 MEQ/L (99-109); MAGNESIUM 2.2 mg/dl (1.3-2.7); SODIUM 138 MEQ/L (136-147); UREA NITROGEN (BUN) 26 mg/dL (9-23)
[2018-05-09 06:15] LABS: CREATININE 5.2 MG/DL (0.6-1.3); GFR ESTIMATE (CALCULATED) 12 mL/min/ (58.99-99999); GLUCOSE 95 mg/dL (70-99); POTASSIUM 3.9 MEQ/L (3.7-5.4)
[2018-05-10] VITALS (11 sets, daily range): BP systolic 136–200; BP diastolic 58–93
[2018-05-10 05:36] LABS: BASOPHIL (%) 0.7 % (0-1); BASOPHIL COUNT 0.1 K/uL (0-0.1); EOSINOPHIL (%) 3.7 % (0-5); EOSINOPHIL COUNT 0.3 K/uL (0-0.3); HEMATOCRIT 32.9 % (38.0-50.0); IMMATURE GRANULOCYTE (%) 0.7 % (0.0-0.7); LYMPHOCYTE (%) 7.6 % (15-42); LYMPHOCYTE COUNT 0.7 K/uL (1.0-2.8); MCH 30.6 PG (29.0-34.0); MCHC 33.4 G/DL (30.0-36.0); MCV 91.4 FL (86-99); MONOCYTE (%) 9.2 % (3-12); MONOCYTE COUNT 0.8 K/uL (0-0.8); NEUTROPHIL (%) 78.1 % (45-76); NEUTROPHIL COUNT 6.9 K/uL (1.8-6.4); PLATELET COUNT 147 K/uL (156-360); RBC DIS.WIDTH-CV 15.1 % (11.8-14.6); RBC DIS.WIDTH-SD 50.3 % (39-53); WHITE BLOOD COUNT 8.8 K/uL (4.1-10.2)
[2018-05-10 06:43] LABS: CHLORIDE 96 MEQ/L (99-109); GLUCOSE 108 mg/dL (70-99); MAGNESIUM 2.1 mg/dl (1.3-2.7); POTASSIUM 3.7 MEQ/L (3.7-5.4); SODIUM 137 MEQ/L (136-147); UREA NITROGEN (BUN) 17 mg/dL (9-23)
[2018-05-10 06:48] LABS: GFR ESTIMATE (CALCULATED) 17 mL/min/ (58.99-99999); PHOSPHORUS 3.2 mg/dL (2.5-4.9)
[2018-05-11 07:15] VITALS: BP 130/73
[2018-05-11 09:16] LABS: BASOPHIL (%) 0.7 % (0-1); BASOPHIL COUNT 0.1 K/uL (0-0.1); EOSINOPHIL (%) 3.8 % (0-5); EOSINOPHIL COUNT 0.3 K/uL (0-0.3); HEMATOCRIT 35.9 % (38.0-50.0); HEMOGLOBIN 11.8 G/DL (12.5-16.6); IMMATURE GRANULOCYTE (%) 0.8 % (0.0-0.7); LYMPHOCYTE (%) 8.3 % (15-42); LYMPHOCYTE COUNT 0.7 K/uL (1.0-2.8); MCH 29.7 PG (29.0-34.0); MCHC 32.9 G/DL (30.0-36.0); MCV 90.4 FL (86-99); MONOCYTE (%) 9.8 % (3-12); MONOCYTE COUNT 0.8 K/uL (0-0.8); NEUTROPHIL (%) 76.6 % (45-76); NEUTROPHIL COUNT 6.4 K/uL (1.8-6.4); PLATELET COUNT 173 K/uL (156-360); RBC DIS.WIDTH-CV 14.9 % (11.8-14.6); RBC DIS.WIDTH-SD 49.7 % (39-53); RED BLOOD COUNT 3.97 M/uL (4.00-5.50); WHITE BLOOD COUNT 8.3 K/uL (4.1-10.2)
[2018-05-11 09:44] LABS: CHLORIDE 98 MEQ/L (99-109); GFR ESTIMATE (CALCULATED) 14 mL/min/ (58.99-99999); GLUCOSE 99 mg/dL (70-99); MAGNESIUM 2.1 mg/dl (1.3-2.7); PHOSPHORUS 3.3 mg/dL (2.5-4.9); POTASSIUM 3.9 MEQ/L (3.7-5.4); SODIUM 137 MEQ/L (136-147)
[2018-05-11 10:01] LABS: CREATININE 4.8 MG/DL (0.6-1.3); UREA NITROGEN (BUN) 27 mg/dL (9-23)
[2018-05-11 13:30] VITALS: BP 179/91
[2018-05-11 15:15] VITALS: BP 140/63
[2018-05-11 23:52] VITALS: BP 156/76
[2018-05-12 08:00] VITALS: BP 135/62
[2018-05-12 16:31] VITALS: BP 120/72
[2018-05-12 22:14] VITALS: BP 158/98
[2018-05-13 00:37] VITALS: BP 118/76
[2018-05-13 06:01] LABS: HEMATOCRIT 39.3 % (38.0-50.0); HEMOGLOBIN 12.8 G/DL (12.5-16.6); MCH 30.3 PG (29.0-34.0); MCHC 32.6 G/DL (30.0-36.0); MCV 92.9 FL (86-99); PLATELET COUNT 192 K/uL (156-360); RBC DIS.WIDTH-CV 15.2 % (11.8-14.6); RBC DIS.WIDTH-SD 51.6 % (39-53); RED BLOOD COUNT 4.23 M/uL (4.00-5.50); WHITE BLOOD COUNT 7.4 K/uL (4.1-10.2)
[2018-05-13 06:24] LABS: CHLORIDE 99 MEQ/L (99-109); GFR ESTIMATE (CALCULATED) 13 mL/min/ (58.99-99999); GLUCOSE 121 mg/dL (70-99); POTASSIUM 4.1 MEQ/L (3.7-5.4); SODIUM 140 MEQ/L (136-147); UREA NITROGEN (BUN) 40 mg/dL (9-23)
[2018-05-13 07:15] VITALS: BP 126/78
[2018-05-13 16:30] VITALS: BP 148/70
[2018-05-13 22:33] VITALS: BP 178/92
[2018-05-14 02:52] VITALS: BP 193/91
[2018-05-14 04:28] VITALS: BP 154/72
[2018-05-14 07:17] LABS: CHLORIDE 99 MEQ/L (99-109); CREATININE 5.6 MG/DL (0.6-1.3); GFR ESTIMATE (CALCULATED) 11 mL/min/ (58.99-99999); GLUCOSE 132 mg/dL (70-99); POTASSIUM 3.9 MEQ/L (3.7-5.4); SODIUM 140 MEQ/L (136-147); UREA NITROGEN (BUN) 46 mg/dL (9-23)
[2018-05-14 08:14] LABS: BASOPHIL (%) 1.2 % (0-1); BASOPHIL COUNT 0.1 K/uL (0-0.1); EOSINOPHIL (%) 6.2 % (0-5); EOSINOPHIL COUNT 0.5 K/uL (0-0.3); HEMATOCRIT 37.3 % (38.0-50.0); HEMOGLOBIN 12.3 G/DL (12.5-16.6); IMMATURE GRANULOCYTE (%) 1.1 % (0.0-0.7); LYMPHOCYTE COUNT 1.3 K/uL (1.0-2.8); MCH 30.1 PG (29.0-34.0); MCV 91.2 FL (86-99); MONOCYTE (%) 12.6 % (3-12); MONOCYTE COUNT 0.9 K/uL (0-0.8); NEUTROPHIL (%) 60.9 % (45-76); NEUTROPHIL COUNT 4.4 K/uL (1.8-6.4); PLATELET COUNT 200 K/uL (156-360); RED BLOOD COUNT 4.09 M/uL (4.00-5.50); WHITE BLOOD COUNT 7.3 K/uL (4.1-10.2)
[2018-05-14 11:39] VITALS: BP 140/87
[2018-05-14 16:00] VITALS: BP 116/84
[2018-05-14 23:18] VITALS: BP 128/78
[2018-05-14 23:28] VITALS: BP 138/63
[2018-05-15 07:10] VITALS: BP 148/66
[2018-05-15 15:55] VITALS: BP 152/92
[2018-05-15 22:47] VITALS: BP 176/87
[2018-05-16 07:13] VITALS: BP 161/81
[2018-05-16 07:57] LABS: BASOPHIL (%) 1.5 % (0-1); BASOPHIL COUNT 0.1 K/uL (0-0.1); EOSINOPHIL (%) 2.5 % (0-5); EOSINOPHIL COUNT 0.2 K/uL (0-0.3); HEMATOCRIT 38.3 % (38.0-50.0); HEMOGLOBIN 12.6 G/DL (12.5-16.6); LYMPHOCYTE (%) 20.4 % (15-42); LYMPHOCYTE COUNT 1.6 K/uL (1.0-2.8); MCH 30.1 PG (29.0-34.0); MCHC 32.9 G/DL (30.0-36.0); MCV 91.6 FL (86-99); MONOCYTE (%) 12.8 % (3-12); NEUTROPHIL (%) 61.8 % (45-76); NEUTROPHIL COUNT 4.9 K/uL (1.8-6.4); PLATELET COUNT 211 K/uL (156-360); RBC DIS.WIDTH-SD 50.2 % (39-53); RED BLOOD COUNT 4.18 M/uL (4.00-5.50); WHITE BLOOD COUNT 7.9 K/uL (4.1-10.2)
[2018-05-16 08:07] LABS: CHLORIDE 96 MEQ/L (99-109); POTASSIUM 4.2 MEQ/L (3.7-5.4); SODIUM 140 MEQ/L (136-147)
[2018-05-16 08:18] LABS: GFR ESTIMATE (CALCULATED) 8 mL/min/ (58.99-99999); GLUCOSE 104 mg/dL (70-99); UREA NITROGEN (BUN) 59 mg/dL (9-23)
[2018-05-16 08:19] LABS: CREATININE 7.7 MG/DL (0.6-1.3)
[2018-05-16 10:42] LABS: HEMOGLOBIN A1c (GLYCOHEMOGLOB) 5.6 % (Below 5.7)
[2018-05-16 11:46] VITALS: BP 148/73
[2018-05-16] MEDS ORDERED: ENDOCET 5-3251 EACH PO (12:35)
[2018-05-16] MEDS ORDERED: BACLOFEN10 MG PO (12:35)
[2018-05-16] MEDS ORDERED: TRAZODONE HCL50 MG PO (12:36)
[2018-05-16] MEDS ORDERED: NEURONTIN300 MG PO (12:36)
[2018-05-16] MEDS ORDERED: CARDURA2 M1 PO (12:37)
[2018-05-16] MEDS ORDERED: TOPIRAMATE25 MG PO (12:37)
[2018-05-16] MEDS ORDERED: CATAPRES0.2 MG PO (12:38)
[2018-05-16] MEDS ORDERED: KEPPRA500 MG PO (12:38)
[2018-05-16] MEDS ORDERED: LIPITOR40 MG PO (12:39)
[2018-05-16] MEDS ORDERED: CLOPIDOGREL75 MG PO (12:39)
[2018-05-16] MEDS ORDERED: SYNTHROID75 MCG PO (12:39)
[2018-05-16] MEDS ORDERED: JANUVIA100 MG PO (12:40)
[2018-05-16 13:31] VITALS: BP 104/57
[2018-05-16 16:26] VITALS: BP 91/52
[2018-05-16 21:15] VITALS: BP 135/82
[2018-05-16 23:20] VITALS: BP 149/76
[2018-05-17 06:34] LABS: BASOPHIL (%) 1.2 % (0-1); BASOPHIL COUNT 0.1 K/uL (0-0.1); EOSINOPHIL (%) 2.8 % (0-5); EOSINOPHIL COUNT 0.3 K/uL (0-0.3); HEMATOCRIT 44.7 % (38.0-50.0); IMMATURE GRANULOCYTE (%) 1.2 % (0.0-0.7); LYMPHOCYTE (%) 22.6 % (15-42); LYMPHOCYTE COUNT 2.2 K/uL (1.0-2.8); MCH 30.6 PG (29.0-34.0); MCHC 32.9 G/DL (30.0-36.0); MCV 92.9 FL (86-99); MONOCYTE (%) 14.1 % (3-12); MONOCYTE COUNT 1.4 K/uL (0-0.8); NEUTROPHIL (%) 58.1 % (45-76); NEUTROPHIL COUNT 5.7 K/uL (1.8-6.4); PLATELET COUNT 206 K/uL (156-360); RBC DIS.WIDTH-CV 15.2 % (11.8-14.6); RBC DIS.WIDTH-SD 51.8 % (39-53); RED BLOOD COUNT 4.81 M/uL (4.00-5.50); WHITE BLOOD COUNT 9.9 K/uL (4.1-10.2)
[2018-05-17 06:41] LABS: HEMOGLOBIN 14.7 G/DL (12.5-16.6)
[2018-05-17 06:50] LABS: CHLORIDE 92 MEQ/L (99-109); GLUCOSE 130 mg/dL (70-99); SODIUM 136 MEQ/L (136-147); UREA NITROGEN (BUN) 38 mg/dL (9-23)
[2018-05-17 06:51] LABS: CREATININE 5.9 MG/DL (0.6-1.3); GFR ESTIMATE (CALCULATED) 11 mL/min/ (58.99-99999); POTASSIUM 5.1 MEQ/L (3.7-5.4)
[2018-05-17 07:55] VITALS: BP 155/71
[2018-05-17 11:38] VITALS: BP 114/63
[2018-05-17 15:22] VITALS: BP 113/76
[2018-05-17 15:31] VITALS: BP 129/64
[2018-05-17 19:56] VITALS: BP 114/60
[2018-05-17 23:58] VITALS: BP 137/76
[2018-05-18 07:00] VITALS: BP 120/62
[2018-05-18 08:21] LABS: BASOPHIL (%) 1.2 % (0-1); BASOPHIL COUNT 0.1 K/uL (0-0.1); EOSINOPHIL (%) 3.6 % (0-5); EOSINOPHIL COUNT 0.3 K/uL (0-0.3); HEMATOCRIT 38.5 % (38.0-50.0); HEMOGLOBIN 12.9 G/DL (12.5-16.6); IMMATURE GRANULOCYTE (%) 0.9 % (0.0-0.7); LYMPHOCYTE (%) 20.9 % (15-42); LYMPHOCYTE COUNT 1.8 K/uL (1.0-2.8); MCH 30.6 PG (29.0-34.0); MCHC 33.5 G/DL (30.0-36.0); MCV 91.4 FL (86-99); MONOCYTE (%) 10.3 % (3-12); MONOCYTE COUNT 0.9 K/uL (0-0.8); NEUTROPHIL (%) 63.1 % (45-76); NEUTROPHIL COUNT 5.4 K/uL (1.8-6.4); PLATELET COUNT 235 K/uL (156-360); RBC DIS.WIDTH-SD 49.8 % (39-53); RED BLOOD COUNT 4.21 M/uL (4.00-5.50); WHITE BLOOD COUNT 8.5 K/uL (4.1-10.2)
[2018-05-18 08:35] LABS: CHLORIDE 90 MEQ/L (99-109); GFR ESTIMATE (CALCULATED) 8 mL/min/ (58.99-99999); GLUCOSE 174 mg/dL (70-99); POTASSIUM 4.5 MEQ/L (3.7-5.4); SODIUM 135 MEQ/L (136-147)
[2018-05-18 08:36] LABS: CREATININE 7.6 MG/DL (0.6-1.3); UREA NITROGEN (BUN) 58 mg/dL (9-23)
[2018-05-18 15:58] VITALS: BP 106/60
[2018-05-18 22:50] VITALS: BP 142/81
[2018-05-19 07:00] VITALS: BP 164/78
[2018-05-19 07:03] LABS: CHLORIDE 87 MEQ/L (99-109); GFR ESTIMATE (CALCULATED) 10 mL/min/ (58.99-99999); GLUCOSE 121 mg/dL (70-99); POTASSIUM 4.6 MEQ/L (3.7-5.4); SODIUM 136 MEQ/L (136-147); UREA NITROGEN (BUN) 39 mg/dL (9-23)
[2018-05-19 07:04] LABS: CREATININE 6.2 MG/DL (0.6-1.3)
[2018-05-19 08:20] LABS: BASOPHIL COUNT 0.1 K/uL (0-0.1); EOSINOPHIL (%) 1.3 % (0-5); EOSINOPHIL COUNT 0.1 K/uL (0-0.3); HEMATOCRIT 44.8 % (38.0-50.0); HEMATOLOGY COMMENT 1 SN; IMMATURE GRANULOCYTE (%) 0.9 % (0.0-0.7); LYMPHOCYTE (%) 16.1 % (15-42); LYMPHOCYTE COUNT 1.8 K/uL (1.0-2.8); MCH 30.5 PG (29.0-34.0); MCHC 33.5 G/DL (30.0-36.0); MCV 91.2 FL (86-99); MONOCYTE (%) 10.9 % (3-12); MONOCYTE COUNT 1.2 K/uL (0-0.8); NEUTROPHIL (%) 69.8 % (45-76); NEUTROPHIL COUNT 7.8 K/uL (1.8-6.4); PLAT.SUFFICIENCY ADEQUATE; PLATELET COUNT 209 K/uL (156-360); RED BLOOD COUNT 4.91 M/uL (4.00-5.50); WHITE BLOOD COUNT 11.2 K/uL (4.1-10.2)
[2018-05-19 11:30] VITALS: BP 100/54
[2018-05-19 15:25] VITALS: BP 107/56
[2018-05-19 21:10] VITALS: BP 119/69
[2018-05-19 23:01] VITALS: BP 102/59
[2018-05-20 06:59] LABS: HEMATOCRIT 39.1 % (38.0-50.0); HEMOGLOBIN 13.1 G/DL (12.5-16.6); MCH 30.6 PG (29.0-34.0); MCHC 33.5 G/DL (30.0-36.0); MCV 91.4 FL (86-99); PLATELET COUNT 233 K/uL (156-360); RBC DIS.WIDTH-CV 15.1 % (11.8-14.6); RBC DIS.WIDTH-SD 50.4 % (39-53); RED BLOOD COUNT 4.28 M/uL (4.00-5.50); WHITE BLOOD COUNT 11.4 K/uL (4.1-10.2)
[2018-05-20 07:00] VITALS: BP 112/55
[2018-05-20 07:27] LABS: CHLORIDE 86 MEQ/L (99-109); GFR ESTIMATE (CALCULATED) 7 mL/min/ (58.99-99999); GLUCOSE 104 mg/dL (70-99); POTASSIUM 4.5 MEQ/L (3.7-5.4); SODIUM 132 MEQ/L (136-147); UREA NITROGEN (BUN) 58 mg/dL (9-23)
[2018-05-20 07:29] LABS: CREATININE 8.2 MG/DL (0.6-1.3)
[2018-05-20 12:19] LABS: ALBUMIN 4.6 G/DL (3.2-4.8); ALKALINE PHOSPHATASE 91 IU/L (3-129); ALT (GPT) 41 IU/L (3-49); AST (GOT) 33 IU/L (2-34); DIRECT BILIRUBIN 0.2 mg/dL (0.0-0.3); TOTAL BILIRUBIN 0.7 MG/DL (0.0-1.0); TOTAL PROTEIN 7.5 G/DL (6.4-8.3)
[2018-05-20 16:00] VITALS: BP 136/74
[2018-05-20 21:11] VITALS: BP 174/85
[2018-05-20 22:47] VITALS: BP 134/76
[2018-05-21 06:46] LABS: BASOPHIL (%) 1.2 % (0-1); BASOPHIL COUNT 0.1 K/uL (0-0.1); EOSINOPHIL (%) 2.5 % (0-5); EOSINOPHIL COUNT 0.2 K/uL (0-0.3); HEMATOCRIT 40.1 % (38.0-50.0); HEMOGLOBIN 13.2 G/DL (12.5-16.6); IMMATURE GRANULOCYTE (%) 0.6 % (0.0-0.7); LYMPHOCYTE (%) 17.8 % (15-42); LYMPHOCYTE COUNT 1.6 K/uL (1.0-2.8); MCH 29.7 PG (29.0-34.0); MCHC 32.9 G/DL (30.0-36.0); MCV 90.3 FL (86-99); MONOCYTE (%) 10.1 % (3-12); MONOCYTE COUNT 0.9 K/uL (0-0.8); NEUTROPHIL (%) 67.8 % (45-76); NEUTROPHIL COUNT 6.1 K/uL (1.8-6.4); PLATELET COUNT 250 K/uL (156-360); RBC DIS.WIDTH-CV 14.6 % (11.8-14.6); RBC DIS.WIDTH-SD 48.6 % (39-53); RED BLOOD COUNT 4.44 M/uL (4.00-5.50); WHITE BLOOD COUNT 8.9 K/uL (4.1-10.2)
[2018-05-21 06:58] VITALS: BP 128/61
[2018-05-21 07:17] LABS: CHLORIDE 87 MEQ/L (99-109); CREATININE 10.1 MG/DL (0.6-1.3); GFR ESTIMATE (CALCULATED) 6 mL/min/ (58.99-99999); GLUCOSE 91 mg/dL (70-99); POTASSIUM 4.6 MEQ/L (3.7-5.4); SODIUM 135 MEQ/L (136-147); UREA NITROGEN (BUN) 76 mg/dL (9-23)
[2018-05-21 15:00] VITALS: BP 113/69
[2018-05-22 00:46] VITALS: BP 131/60
[2018-05-22 07:00] VITALS: BP 132/68
[2018-05-22 15:35] VITALS: BP 138/82
[2018-05-22 23:32] VITALS: BP 155/77
[2018-05-23 06:16] VITALS: BP 140/85
[2018-05-23 07:13] VITALS: BP 107/59
[2018-05-23 08:11] LABS: BASOPHIL (%) 1.7 % (0-1); BASOPHIL COUNT 0.1 K/uL (0-0.1); EOSINOPHIL (%) 3.9 % (0-5); EOSINOPHIL COUNT 0.3 K/uL (0-0.3); HEMATOCRIT 35.5 % (38.0-50.0); HEMOGLOBIN 12.1 G/DL (12.5-16.6); IMMATURE GRANULOCYTE (%) 0.7 % (0.0-0.7); LYMPHOCYTE (%) 23.5 % (15-42); LYMPHOCYTE COUNT 1.7 K/uL (1.0-2.8); MCH 30.6 PG (29.0-34.0); MCHC 34.1 G/DL (30.0-36.0); MCV 89.9 FL (86-99); MONOCYTE COUNT 0.8 K/uL (0-0.8); NEUTROPHIL (%) 59.2 % (45-76); NEUTROPHIL COUNT 4.3 K/uL (1.8-6.4); PLATELET COUNT 223 K/uL (156-360); RBC DIS.WIDTH-SD 46.4 % (39-53); RED BLOOD COUNT 3.95 M/uL (4.00-5.50); WHITE BLOOD COUNT 7.2 K/uL (4.1-10.2)
[2018-05-23 08:34] LABS: ALBUMIN 4.2 G/DL (3.2-4.8); CHLORIDE 85 MEQ/L (99-109); CREATININE 9.1 MG/DL (0.6-1.3); GFR ESTIMATE (CALCULATED) 6 mL/min/ (58.99-99999); SODIUM 132 MEQ/L (136-147); UREA NITROGEN (BUN) 65 mg/dL (9-23)
[2018-05-23 08:35] LABS: GLUCOSE 175 mg/dL (70-99); PHOSPHORUS 8.7 mg/dL (2.5-4.9)
[2018-05-23 12:09] VITALS: BP 138/79
[2018-05-23 15:47] VITALS: BP 147/83
[2018-05-23 22:51] VITALS: BP 181/90
[2018-05-24 07:37] VITALS: BP 142/75
[2018-05-24 15:48] VITALS: BP 109/53
[2018-05-24 23:11] VITALS: BP 102/64
[2018-05-25 08:18] LABS: BASOPHIL (%) 1.3 % (0-1); BASOPHIL COUNT 0.1 K/uL (0-0.1); EOSINOPHIL COUNT 0.3 K/uL (0-0.3); HEMATOCRIT 34.3 % (38.0-50.0); HEMOGLOBIN 11.8 G/DL (12.5-16.6); IMMATURE GRANULOCYTE (%) 0.4 % (0.0-0.7); LYMPHOCYTE COUNT 1.4 K/uL (1.0-2.8); MCH 30.7 PG (29.0-34.0); MCHC 34.4 G/DL (30.0-36.0); MCV 89.3 FL (86-99); MONOCYTE (%) 8.9 % (3-12); MONOCYTE COUNT 0.6 K/uL (0-0.8); NEUTROPHIL (%) 65.4 % (45-76); NEUTROPHIL COUNT 4.6 K/uL (1.8-6.4); PLATELET COUNT 222 K/uL (156-360); RBC DIS.WIDTH-CV 13.9 % (11.8-14.6); RBC DIS.WIDTH-SD 45.2 % (39-53); RED BLOOD COUNT 3.84 M/uL (4.00-5.50)
[2018-05-25 08:32] LABS: CHLORIDE 89 MEQ/L (99-109); GLUCOSE 203 mg/dL (70-99); SODIUM 133 MEQ/L (136-147); UREA NITROGEN (BUN) 48 mg/dL (9-23)
[2018-05-25 08:33] LABS: CREATININE 6.8 MG/DL (0.6-1.3); GFR ESTIMATE (CALCULATED) 9 mL/min/ (58.99-99999); PHOSPHORUS 5.1 mg/dL (2.5-4.9)
[2018-05-25 11:15] VITALS: BP 152/80
[2018-05-25 15:57] VITALS: BP 151/94
[2018-05-25 21:42] VITALS: BP 118/78
[2018-05-25 23:31] VITALS: BP 130/73
[2018-05-26 07:20] VITALS: BP 140/68
[2018-05-26 16:28] VITALS: BP 140/81
[2018-05-27 07:00] VITALS: BP 160/86
[2018-05-27 15:00] VITALS: BP 138/74
[2018-05-27 21:52] VITALS: BP 167/77
[2018-05-28 00:01] VITALS: BP 140/80
[2018-05-28 06:53] LABS: HEMATOCRIT 35.4 % (38.0-50.0); HEMOGLOBIN 11.8 G/DL (12.5-16.6); MCH 30.3 PG (29.0-34.0); MCHC 33.3 G/DL (30.0-36.0); PLATELET COUNT 248 K/uL (156-360); RBC DIS.WIDTH-CV 14.1 % (11.8-14.6); RBC DIS.WIDTH-SD 46.9 % (39-53); RED BLOOD COUNT 3.89 M/uL (4.00-5.50); WHITE BLOOD COUNT 5.6 K/uL (4.1-10.2)
[2018-05-28 07:06] VITALS: BP 110/51
[2018-05-28 07:37] LABS: CHLORIDE 97 MEQ/L (99-109); CREATININE 6.9 MG/DL (0.6-1.3); GFR ESTIMATE (CALCULATED) 9 mL/min/ (58.99-99999); MAGNESIUM 2.2 mg/dl (1.3-2.7); PHOSPHORUS 4.9 mg/dL (2.5-4.9); POTASSIUM 4.5 MEQ/L (3.7-5.4); SODIUM 136 MEQ/L (136-147); UREA NITROGEN (BUN) 52 mg/dL (9-23)
[2018-05-28 07:40] LABS: GLUCOSE 118 mg/dL (70-99)
[2018-05-28 11:49] VITALS: BP 166/81
[2018-05-28 15:26] VITALS: BP 127/67
[2018-05-29 00:04] VITALS: BP 162/72
[2018-05-29 08:02] VITALS: BP 111/54
[2018-05-29 15:33] VITALS: BP 130/71
[2018-05-29 22:22] VITALS: BP 144/72
[2018-05-29 23:43] VITALS: BP 154/70
[2018-05-30 05:50] VITALS: BP 166/77
[2018-05-30 06:50] VITALS: BP 186/88
[2018-05-30 09:43] LABS: BASOPHIL (%) 1.6 % (0-1); BASOPHIL COUNT 0.1 K/uL (0-0.1); EOSINOPHIL (%) 3.8 % (0-5); EOSINOPHIL COUNT 0.2 K/uL (0-0.3); HEMATOCRIT 32.5 % (38.0-50.0); HEMOGLOBIN 11.1 G/DL (12.5-16.6); IMMATURE GRANULOCYTE (%) 1.6 % (0.0-0.7); LYMPHOCYTE COUNT 1.4 K/uL (1.0-2.8); MCH 30.8 PG (29.0-34.0); MCHC 34.2 G/DL (30.0-36.0); MCV 90.3 FL (86-99); MONOCYTE (%) 8.9 % (3-12); MONOCYTE COUNT 0.4 K/uL (0-0.8); NEUTROPHIL (%) 53.1 % (45-76); NEUTROPHIL COUNT 2.4 K/uL (1.8-6.4); PLATELET COUNT 211 K/uL (156-360); RBC DIS.WIDTH-CV 13.6 % (11.8-14.6); RBC DIS.WIDTH-SD 44.9 % (39-53); WHITE BLOOD COUNT 4.5 K/uL (4.1-10.2)
[2018-05-30 10:05] LABS: ALBUMIN 3.7 G/DL (3.2-4.8); CHLORIDE 95 MEQ/L (99-109); POTASSIUM 4.1 MEQ/L (3.7-5.4); SODIUM 134 MEQ/L (136-147)
[2018-05-30 10:28] LABS: GFR ESTIMATE (CALCULATED) 13 mL/min/ (58.99-99999); GLUCOSE 141 mg/dL (70-99); PHOSPHORUS 3.3 mg/dL (2.5-4.9); UREA NITROGEN (BUN) 42 mg/dL (9-23)
[2018-05-30 15:20] VITALS: BP 163/80
[2018-05-30 23:46] VITALS: BP 132/62
[2018-05-31 08:05] VITALS: BP 149/72
[2018-05-31 15:55] VITALS: BP 179/82
[2018-06-01 01:37] VITALS: BP 148/70
[2018-06-01 07:15] VITALS: BP 116/50
[2018-06-01 09:00] LABS: BASOPHIL (%) 1.1 % (0-1); BASOPHIL COUNT 0.1 K/uL (0-0.1); EOSINOPHIL (%) 4.1 % (0-5); EOSINOPHIL COUNT 0.3 K/uL (0-0.3); HEMATOCRIT 31.3 % (38.0-50.0); HEMOGLOBIN 10.5 G/DL (12.5-16.6); IMMATURE GRANULOCYTE (%) 1.1 % (0.0-0.7); LYMPHOCYTE (%) 19.5 % (15-42); LYMPHOCYTE COUNT 1.2 K/uL (1.0-2.8); MCH 30.3 PG (29.0-34.0); MCHC 33.5 G/DL (30.0-36.0); MCV 90.5 FL (86-99); MONOCYTE (%) 10.7 % (3-12); MONOCYTE COUNT 0.7 K/uL (0-0.8); NEUTROPHIL (%) 63.5 % (45-76); NEUTROPHIL COUNT 3.9 K/uL (1.8-6.4); PLATELET COUNT 189 K/uL (156-360); RBC DIS.WIDTH-CV 13.5 % (11.8-14.6); RBC DIS.WIDTH-SD 44.8 % (39-53); RED BLOOD COUNT 3.46 M/uL (4.00-5.50); WHITE BLOOD COUNT 6.1 K/uL (4.1-10.2)
[2018-06-01 09:18] LABS: CHLORIDE 99 MEQ/L (99-109); POTASSIUM 4.5 MEQ/L (3.7-5.4); SODIUM 137 MEQ/L (136-147)
[2018-06-01 09:31] LABS: GFR ESTIMATE (CALCULATED) 10 mL/min/ (58.99-99999)
[2018-06-01 09:33] LABS: CREATININE 6.3 MG/DL (0.6-1.3); GLUCOSE 227 mg/dL (70-99); UREA NITROGEN (BUN) 68 mg/dL (9-23)
[2018-06-01 15:20] VITALS: BP 172/84
[2018-06-01 20:39] VITALS: BP 180/80
[2018-06-01 21:59] VITALS: BP 177/74
[2018-06-01 23:09] VITALS: BP 141/63
[2018-06-02 06:40] VITALS: BP 109/48
[2018-06-02 15:40] VITALS: BP 120/56
[2018-06-02 20:19] VITALS: BP 190/85
[2018-06-02 22:33] VITALS: BP 187/81
[2018-06-03 00:58] VITALS: BP 185/86
[2018-06-03 02:39] VITALS: BP 174/66
[2018-06-03 06:45] VITALS: BP 107/66
[2018-06-03 15:30] VITALS: BP 134/58
[2018-06-03 20:11] VITALS: BP 158/64
[2018-06-03 22:28] VITALS: BP 179/83
[2018-06-04 07:21] VITALS: BP 135/60
[2018-06-04 08:36] LABS: BASOPHIL (%) 0.8 % (0-1); BASOPHIL COUNT 0.1 K/uL (0-0.1); EOSINOPHIL (%) 3.6 % (0-5); EOSINOPHIL COUNT 0.3 K/uL (0-0.3); HEMATOCRIT 29.2 % (38.0-50.0); IMMATURE GRANULOCYTE (%) 1.4 % (0.0-0.7); LYMPHOCYTE (%) 18.4 % (15-42); LYMPHOCYTE COUNT 1.4 K/uL (1.0-2.8); MCHC 34.2 G/DL (30.0-36.0); MCV 90.4 FL (86-99); MONOCYTE (%) 8.7 % (3-12); MONOCYTE COUNT 0.7 K/uL (0-0.8); NEUTROPHIL (%) 67.1 % (45-76); NEUTROPHIL COUNT 5.1 K/uL (1.8-6.4); PLATELET COUNT 157 K/uL (156-360); RBC DIS.WIDTH-CV 13.5 % (11.8-14.6); RBC DIS.WIDTH-SD 44.6 % (39-53); RED BLOOD COUNT 3.23 M/uL (4.00-5.50); WHITE BLOOD COUNT 7.6 K/uL (4.1-10.2)
[2018-06-04 08:46] LABS: ALBUMIN 3.7 G/DL (3.2-4.8); CHLORIDE 100 MEQ/L (99-109); POTASSIUM 4.5 MEQ/L (3.7-5.4); SODIUM 140 MEQ/L (136-147)
[2018-06-04 08:54] LABS: CREATININE 6.9 MG/DL (0.6-1.3); GFR ESTIMATE (CALCULATED) 9 mL/min/ (58.99-99999); GLUCOSE 207 mg/dL (70-99); PHOSPHORUS 4.5 mg/dL (2.5-4.9); UREA NITROGEN (BUN) 86 mg/dL (9-23)
[2018-06-04 16:54] VITALS: BP 132/74
[2018-06-04 23:08] VITALS: BP 189/83
[2018-06-05 06:55] VITALS: BP 140/79
[2018-06-05 15:00] VITALS: BP 137/80
[2018-06-05 22:57] VITALS: BP 169/84
[2018-06-06 07:00] VITALS: BP 158/77
[2018-06-06 08:21] LABS: BASOPHIL (%) 1.1 % (0-1); BASOPHIL COUNT 0.1 K/uL (0-0.1); EOSINOPHIL (%) 4.4 % (0-5); EOSINOPHIL COUNT 0.3 K/uL (0-0.3); HEMATOCRIT 32.5 % (38.0-50.0); IMMATURE GRANULOCYTE (%) 1.2 % (0.0-0.7); LYMPHOCYTE (%) 23.1 % (15-42); LYMPHOCYTE COUNT 1.5 K/uL (1.0-2.8); MCH 30.6 PG (29.0-34.0); MCHC 33.8 G/DL (30.0-36.0); MCV 90.5 FL (86-99); MONOCYTE (%) 7.2 % (3-12); MONOCYTE COUNT 0.5 K/uL (0-0.8); NEUTROPHIL COUNT 4.2 K/uL (1.8-6.4); PLATELET COUNT 172 K/uL (156-360); RBC DIS.WIDTH-CV 13.3 % (11.8-14.6); RBC DIS.WIDTH-SD 44.3 % (39-53); RED BLOOD COUNT 3.59 M/uL (4.00-5.50); WHITE BLOOD COUNT 6.7 K/uL (4.1-10.2)
[2018-06-06 08:31] LABS: ALBUMIN 3.8 G/DL (3.2-4.8); CHLORIDE 99 MEQ/L (99-109); POTASSIUM 4.8 MEQ/L (3.7-5.4); SODIUM 139 MEQ/L (136-147)
[2018-06-06 08:37] LABS: CREATININE 6.2 MG/DL (0.6-1.3); GFR ESTIMATE (CALCULATED) 10 mL/min/ (58.99-99999); GLUCOSE 153 mg/dL (70-99); PHOSPHORUS 5.3 mg/dL (2.5-4.9); UREA NITROGEN (BUN) 70 mg/dL (9-23)
[2018-06-06 15:00] VITALS: BP 114/72
[2018-06-06 23:49] VITALS: BP 113/72
[2018-06-07 07:00] VITALS: BP 136/68
[2018-06-07 15:49] VITALS: BP 172/84
[2018-06-07 23:28] VITALS: BP 150/86
[2018-06-08 07:20] VITALS: BP 152/72
[2018-06-08 08:47] LABS: ALBUMIN 3.9 G/DL (3.2-4.8); CHLORIDE 97 MEQ/L (99-109); POTASSIUM 4.6 MEQ/L (3.7-5.4); SODIUM 140 MEQ/L (136-147)
[2018-06-08 08:53] LABS: CREATININE 6.1 MG/DL (0.6-1.3); GFR ESTIMATE (CALCULATED) 10 mL/min/ (58.99-99999); GLUCOSE 143 mg/dL (70-99); PHOSPHORUS 6.3 mg/dL (2.5-4.9); UREA NITROGEN (BUN) 71 mg/dL (9-23)
[2018-06-08 10:54] LABS: BASOPHIL (%) 1.2 % (0-1); BASOPHIL COUNT 0.1 K/uL (0-0.1); EOSINOPHIL (%) 4.9 % (0-5); EOSINOPHIL COUNT 0.3 K/uL (0-0.3); HEMATOCRIT 30.5 % (38.0-50.0); HEMOGLOBIN 10.3 G/DL (12.5-16.6); IMMATURE GRANULOCYTE (%) 0.5 % (0.0-0.7); LYMPHOCYTE (%) 27.6 % (15-42); LYMPHOCYTE COUNT 1.6 K/uL (1.0-2.8); MCH 30.1 PG (29.0-34.0); MCHC 33.8 G/DL (30.0-36.0); MCV 89.2 FL (86-99); MONOCYTE COUNT 0.5 K/uL (0-0.8); NEUTROPHIL (%) 57.8 % (45-76); NEUTROPHIL COUNT 3.3 K/uL (1.8-6.4); PLATELET COUNT 155 K/uL (156-360); RBC DIS.WIDTH-CV 13.2 % (11.8-14.6); RBC DIS.WIDTH-SD 43.3 % (39-53); RED BLOOD COUNT 3.42 M/uL (4.00-5.50); WHITE BLOOD COUNT 5.7 K/uL (4.1-10.2)
[2018-06-08 15:05] VITALS: BP 153/81
[2018-06-08 22:52] VITALS: BP 168/85
[2018-06-09 09:00] VITALS: BP 113/57
[2018-06-09 15:15] VITALS: BP 131/78
[2018-06-09 22:45] VITALS: BP 138/78
[2018-06-10 07:46] VITALS: BP 144/71
[2018-06-10 15:28] VITALS: BP 144/68
[2018-06-10 23:07] VITALS: BP 119/69
[2018-06-11 07:00] VITALS: BP 118/54
[2018-06-11 08:06] LABS: BASOPHIL (%) 1.1 % (0-1); BASOPHIL COUNT 0.1 K/uL (0-0.1); EOSINOPHIL (%) 4.3 % (0-5); EOSINOPHIL COUNT 0.3 K/uL (0-0.3); HEMATOCRIT 29.8 % (38.0-50.0); HEMOGLOBIN 10.2 G/DL (12.5-16.6); IMMATURE GRANULOCYTE (%) 0.8 % (0.0-0.7); LYMPHOCYTE (%) 25.7 % (15-42); LYMPHOCYTE COUNT 1.6 K/uL (1.0-2.8); MCH 30.5 PG (29.0-34.0); MCHC 34.2 G/DL (30.0-36.0); MCV 89.2 FL (86-99); MONOCYTE (%) 6.6 % (3-12); MONOCYTE COUNT 0.4 K/uL (0-0.8); NEUTROPHIL (%) 61.5 % (45-76); NEUTROPHIL COUNT 3.9 K/uL (1.8-6.4); PLATELET COUNT 164 K/uL (156-360); RBC DIS.WIDTH-CV 13.2 % (11.8-14.6); RBC DIS.WIDTH-SD 42.9 % (39-53); RED BLOOD COUNT 3.34 M/uL (4.00-5.50); WHITE BLOOD COUNT 6.3 K/uL (4.1-10.2)
[2018-06-11 08:25] LABS: ALBUMIN 3.9 G/DL (3.2-4.8); CHLORIDE 96 MEQ/L (99-109); POTASSIUM 4.2 MEQ/L (3.7-5.4); SODIUM 141 MEQ/L (136-147)
[2018-06-11 08:31] LABS: GFR ESTIMATE (CALCULATED) 9 mL/min/ (58.99-99999); GLUCOSE 173 mg/dL (70-99); PHOSPHORUS 6.7 mg/dL (2.5-4.9); UREA NITROGEN (BUN) 87 mg/dL (9-23)
[2018-06-11 15:45] VITALS: BP 103/52
[2018-06-11 22:27] VITALS: BP 96/53
[2018-06-12 07:00] VITALS: BP 117/58
[2018-06-12 23:40] VITALS: BP 140/72
[2018-06-13 08:03] VITALS: BP 138/7
[2018-06-13 09:02] LABS: BASOPHIL (%) 1.1 % (0-1); BASOPHIL COUNT 0.1 K/uL (0-0.1); EOSINOPHIL (%) 5.1 % (0-5); EOSINOPHIL COUNT 0.3 K/uL (0-0.3); HEMATOCRIT 28.6 % (38.0-50.0); HEMOGLOBIN 9.9 G/DL (12.5-16.6); IMMATURE GRANULOCYTE (%) 0.6 % (0.0-0.7); LYMPHOCYTE (%) 27.9 % (15-42); LYMPHOCYTE COUNT 1.5 K/uL (1.0-2.8); MCHC 34.6 G/DL (30.0-36.0); MCV 89.7 FL (86-99); MONOCYTE (%) 10.2 % (3-12); MONOCYTE COUNT 0.5 K/uL (0-0.8); NEUTROPHIL (%) 55.1 % (45-76); NEUTROPHIL COUNT 2.9 K/uL (1.8-6.4); PLATELET COUNT 155 K/uL (156-360); RBC DIS.WIDTH-SD 42.6 % (39-53); RED BLOOD COUNT 3.19 M/uL (4.00-5.50); WHITE BLOOD COUNT 5.3 K/uL (4.1-10.2)
[2018-06-13 09:11] LABS: ALBUMIN 4.1 G/DL (3.2-4.8); CHLORIDE 96 MEQ/L (99-109); POTASSIUM 4.5 MEQ/L (3.7-5.4); SODIUM 138 MEQ/L (136-147)
[2018-06-13 09:17] LABS: CREATININE 7.6 MG/DL (0.6-1.3); GFR ESTIMATE (CALCULATED) 8 mL/min/ (58.99-99999); GLUCOSE 204 mg/dL (70-99); PHOSPHORUS 6.5 mg/dL (2.5-4.9); UREA NITROGEN (BUN) 74 mg/dL (9-23)
[2018-06-13 15:38] VITALS: BP 141/77
[2018-06-13 21:33] VITALS: BP 138/80
[2018-06-13 23:59] VITALS: BP 122/66
[2018-06-14 07:05] VITALS: BP 116/60
[2018-06-14 15:00] VITALS: BP 141/74
[2018-06-14 21:18] VITALS: BP 143/72
[2018-06-14 23:20] VITALS: BP 152/68
[2018-06-15 06:55] VITALS: BP 142/71
[2018-06-15 09:16] LABS: HEMATOCRIT 28.1 % (38.0-50.0); HEMOGLOBIN 9.9 G/DL (12.5-16.6); MCH 30.9 PG (29.0-34.0); MCHC 35.2 G/DL (30.0-36.0); MCV 87.8 FL (86-99); PLATELET COUNT 170 K/uL (156-360); RBC DIS.WIDTH-CV 12.8 % (11.8-14.6); RBC DIS.WIDTH-SD 41.1 % (39-53); WHITE BLOOD COUNT 6.5 K/uL (4.1-10.2)
[2018-06-15 09:25] LABS: CHLORIDE 94 MEQ/L (99-109); POTASSIUM 4.6 MEQ/L (3.7-5.4); SODIUM 138 MEQ/L (136-147)
[2018-06-15 09:31] LABS: GFR ESTIMATE (CALCULATED) 9 mL/min/ (58.99-99999); GLUCOSE 159 mg/dL (70-99); UREA NITROGEN (BUN) 83 mg/dL (9-23)
[2018-06-15 16:41] VITALS: BP 133/74
[2018-06-15 22:40] VITALS: BP 163/77
[2018-06-16 07:00] VITALS: BP 100/48
[2018-06-16 16:10] VITALS: BP 138/76
[2018-06-16 23:52] VITALS: BP 139/74
[2018-06-17 07:00] VITALS: BP 125/57
[2018-06-17 15:25] VITALS: BP 140/64
[2018-06-17 22:43] VITALS: BP 136/67
[2018-06-18 06:45] VITALS: BP 110/51
[2018-06-18 08:00] LABS: BASOPHIL (%) 1.3 % (0-1); BASOPHIL COUNT 0.1 K/uL (0-0.1); EOSINOPHIL (%) 3.5 % (0-5); EOSINOPHIL COUNT 0.2 K/uL (0-0.3); HEMATOCRIT 26.7 % (38.0-50.0); HEMOGLOBIN 9.1 G/DL (12.5-16.6); IMMATURE GRANULOCYTE (%) 1.1 % (0.0-0.7); LYMPHOCYTE (%) 22.8 % (15-42); LYMPHOCYTE COUNT 1.4 K/uL (1.0-2.8); MCH 30.1 PG (29.0-34.0); MCHC 34.1 G/DL (30.0-36.0); MCV 88.4 FL (86-99); MONOCYTE (%) 9.8 % (3-12); MONOCYTE COUNT 0.6 K/uL (0-0.8); NEUTROPHIL (%) 61.5 % (45-76); NEUTROPHIL COUNT 3.8 K/uL (1.8-6.4); PLATELET COUNT 183 K/uL (156-360); RBC DIS.WIDTH-CV 12.8 % (11.8-14.6); RBC DIS.WIDTH-SD 41.1 % (39-53); RED BLOOD COUNT 3.02 M/uL (4.00-5.50); WHITE BLOOD COUNT 6.2 K/uL (4.1-10.2)
[2018-06-18 08:19] LABS: ALBUMIN 3.7 G/DL (3.2-4.8); CHLORIDE 101 MEQ/L (99-109); CREATININE 6.5 MG/DL (0.6-1.3); GFR ESTIMATE (CALCULATED) 10 mL/min/ (58.99-99999); GLUCOSE 111 mg/dL (70-99); PHOSPHORUS 6.2 mg/dL (2.5-4.9); POTASSIUM 4.6 MEQ/L (3.7-5.4); SODIUM 137 MEQ/L (136-147); UREA NITROGEN (BUN) 86 mg/dL (9-23)
[2018-06-18 22:58] VITALS: BP 161/78
[2018-06-19 08:25] VITALS: BP 124/57
[2018-06-19 16:20] VITALS: BP 138/67
[2018-06-20 00:31] VITALS: BP 169/79
[2018-06-20 07:03] VITALS: BP 146/68
[2018-06-20 08:16] LABS: HEMATOCRIT 26.2 % (38.0-50.0); HEMOGLOBIN 9.1 G/DL (12.5-16.6); MCH 31.1 PG (29.0-34.0); MCHC 34.7 G/DL (30.0-36.0); MCV 89.4 FL (86-99); PLATELET COUNT 179 K/uL (156-360); RED BLOOD COUNT 2.93 M/uL (4.00-5.50); WHITE BLOOD COUNT 5.5 K/uL (4.1-10.2)
[2018-06-20 08:35] LABS: ALBUMIN 3.8 G/DL (3.2-4.8); CHLORIDE 96 MEQ/L (99-109); CREATININE 6.3 MG/DL (0.6-1.3); GFR ESTIMATE (CALCULATED) 10 mL/min/ (58.99-99999); PHOSPHORUS 4.9 mg/dL (2.5-4.9); POTASSIUM 4.2 MEQ/L (3.7-5.4); SODIUM 139 MEQ/L (136-147); UREA NITROGEN (BUN) 68 mg/dL (9-23)
[2018-06-20 08:41] LABS: GLUCOSE 188 mg/dL (70-99)
[2018-06-20 11:23] VITALS: BP 128/75
[2018-06-21 00:30] VITALS: BP 161/74
[2018-06-21 07:32] VITALS: BP 116/59
[2018-06-21 21:05] VITALS: BP 156/79
[2018-06-22 08:00] LABS: HEMATOCRIT 24.5 % (38.0-50.0); HEMOGLOBIN 8.3 G/DL (12.5-16.6); MCH 30.6 PG (29.0-34.0); MCHC 33.9 G/DL (30.0-36.0); MCV 90.4 FL (86-99); PLATELET COUNT 187 K/uL (156-360); RBC DIS.WIDTH-CV 13.2 % (11.8-14.6); RBC DIS.WIDTH-SD 43.5 % (39-53); RED BLOOD COUNT 2.71 M/uL (4.00-5.50); WHITE BLOOD COUNT 6.6 K/uL (4.1-10.2)
[2018-06-22 08:11] LABS: ALBUMIN 3.7 G/DL (3.2-4.8); CHLORIDE 96 MEQ/L (99-109); SODIUM 137 MEQ/L (136-147)
[2018-06-22 08:17] LABS: CREATININE 6.3 MG/DL (0.6-1.3); GFR ESTIMATE (CALCULATED) 10 mL/min/ (58.99-99999); GLUCOSE 269 mg/dL (70-99); PHOSPHORUS 4.5 mg/dL (2.5-4.9); UREA NITROGEN (BUN) 73 mg/dL (9-23)
[2018-06-22] MEDS ORDERED: NIFEDIPINE ER60 MG PO (11:11)
[2018-06-22] MEDS ORDERED: ASPIR-LOW81 MG PO (11:11)
[2018-06-22] MEDS ORDERED: LABETALOL HCL200 MG PO (11:11)
[2018-06-22 15:05] VITALS: BP 142/85
== END 2018-06-22 16:36 | disposition home or self-care (01) | DRG 77 ==
LOC: EME 14:33 → 5EAST 17:58 → 4WEST 17:58 → EDOF 17:58 → ENRESERV 17:59 → ENRESERVDT 20:45 → ENRESERVTM 20:45 → 4WEST 22:44 → ENRESERV 05-10 14:05 → 4WEST 05-10 15:00 → 5EAST 05-10 15:11 → ENRESERV 05-13 16:38 → 5EAST 05-13 18:37
PROVIDERS: Emergency Medicine; Family Medicine; Hospitalist; Internal Medicine; Internal Medicine Critical Care Medicine; Internal Medicine Nephrology; Physician Assistant
PROC: 0BH17EZ Insertion of Endotracheal Airway into Trachea, Via Natural or Artificial Opening (ICD-10-PCS; principal; 2018-05-06)
PROC: 5A1955Z Respiratory Ventilation, Greater than 96 Consecutive Hours (ICD-10-PCS; 2018-05-06)
PROC: 5A1D70Z Performance of Urinary Filtration, Intermittent, Less than 6 Hours Per Day (ICD-10-PCS; 2018-05-07)
DX: I67.4 Hypertensive encephalopathy (principal); N18.6 End stage renal disease; R45.851 Suicidal ideations; E11.10 Type 2 diabetes mellitus with ketoacidosis without coma; E87.1 Hypo-osmolality and hyponatremia; F05 Delirium due to known physiological condition; G89.29 Other chronic pain; G47.00 Insomnia, unspecified; E87.6 Hypokalemia; E78.5 Hyperlipidemia, unspecified; I12.0 Hypertensive chronic kidney disease with stage 5 chronic kidney disease or end stage renal disease; N40.0 Benign prostatic hyperplasia without lower urinary tract symptoms; E03.9 Hypothyroidism, unspecified; E11.649 Type 2 diabetes mellitus with hypoglycemia without coma; E11.22 Type 2 diabetes mellitus with diabetic chronic kidney disease; D63.1 Anemia in chronic kidney disease; E11.40 Type 2 diabetes mellitus with diabetic neuropathy, unspecified; G40.909 Epilepsy, unspecified, not intractable, without status epilepticus; E87.2 Acidosis; I16.1 Hypertensive emergency; J98.11 Atelectasis; S20.219A Contusion of unspecified front wall of thorax, initial encounter; S80.212A Abrasion, left knee, initial encounter; S80.211A Abrasion, right knee, initial encounter; S60.512A Abrasion of left hand, initial encounter; S60.511A Abrasion of right hand, initial encounter; S50.312A Abrasion of left elbow, initial encounter; S50.311A Abrasion of right elbow, initial encounter; W19.XXXA Unspecified fall, initial encounter; F32.9 Major depressive disorder, single episode, unspecified; Z91.040 Latex allergy status; Z86.73 Personal history of transient ischemic attack (TIA), and cerebral infarction without residual deficits; Z91.14 Patient's other noncompliance with medication regimen; Z99.2 Dependence on renal dialysis; Z79.4 Long term (current) use of insulin; Y92.009 Unspecified place in unspecified non-institutional (private) residence as the place of occurrence of the external cause; Z91.81 History of falling; Z78.1 Physical restraint status; J45.909 Unspecified asthma, uncomplicated
CPT/HCPCS: 36600; 70450; 71045; 71260; 72125; 73630; 74177; 80048; 80053; 80069; 80076; 80202; 81003; 82010; 82803; 82948; 83036; 83605; 83690; 83735; 84100; 84478; 84484; 85025; 85027; 85610; 85730; 87040; 87070; 87205; 87641; 93005; 93971; 93990; 94002; 94003; 94799; 97530 GO; 97530 GP; 99281; 99284; 99285; C9113; G0480; J0360; J0881; J1630; J1644; J1815; J1953; J2060; J2543; J2597; J2704; J3010; J3370; J3480; J7030; J7050

== ENCOUNTER 2018-06-24 13:18 | Inpatient (IN) | payer OTHER ==
[~2018-06-24] VITALS: Ht 162.6 cm; Wt 62.8 kg
[~2018-06-24 13:18] MED LIST changes: +TOPIRAMATE25 MG PO
[2018-06-24 14:47] LABS: HEMATOCRIT 28.6 % (38.0-50.0); HEMOGLOBIN 9.8 G/DL (12.5-16.6); MCH 30.5 PG (29.0-34.0); MCHC 34.3 G/DL (30.0-36.0); MCV 89.1 FL (86-99); RBC DIS.WIDTH-CV 13.3 % (11.8-14.6); RED BLOOD COUNT 3.21 M/uL (4.00-5.50); WHITE BLOOD COUNT 7.9 K/uL (4.1-10.2)
[2018-06-24 14:49] LABS: CHLORIDE 92 mEq/L (99-109); POTASSIUM 4.5 mEq/L (3.7-5.4); SODIUM 134 mEq/L (136-147)
[2018-06-24 14:51] LABS: GLUCOSE 158 mg/dL (70-99)
[2018-06-24 14:55] LABS: CREATININE 6.2 mg/dL (0.6-1.3); GFR ESTIMATE (CALCULATED) 10 mL/min/ (58.99-99999)
[2018-06-24 14:56] LABS: UREA NITROGEN (BUN) 46 mg/dL (9-23)
[2018-06-24 14:58] LABS: TROP-I INTERPRETATION NEGATIVE; TROPONIN-I < 0.01 ng/mL (0.0-0.30)
[2018-06-24 15:04] LABS: CARBON DIOXIDE (BICARBONATE) 31.8 MEQ/L (20-31)
[2018-06-24 15:38] LABS: BASOPHIL (%) 0.5 % (0-1); EOSINOPHIL (%) 3.2 % (0-5); EOSINOPHIL COUNT 0.3 K/uL (0-0.3); IMMATURE GRANULOCYTE (%) 0.6 % (0.0-0.7); LYMPHOCYTE (%) 14.5 % (15-42); LYMPHOCYTE COUNT 1.1 K/uL (1.0-2.8); MONOCYTE (%) 8.4 % (3-12); MONOCYTE COUNT 0.7 K/uL (0-0.8); NEUTROPHIL (%) 72.8 % (45-76); NEUTROPHIL COUNT 5.7 K/uL (1.8-6.4); PLAT.SUFFICIENCY ADEQUATE
[2018-06-24 15:40] LABS: PLATELET COUNT 260 K/uL (156-360)
[2018-06-24 16:06] LABS: PTT 26.4 SEC (25-37)
[2018-06-24 16:28] LABS: SERUM ETHYL ALCOHOL < 10 mg/dL
[2018-06-24 17:09] LABS: ALBUMIN 4.4 G/DL (3.2-4.8); ALKALINE PHOSPHATASE 110 IU/L (3-129); ALT (GPT) 22 IU/L (3-49); AST (GOT) 18 IU/L (2-34); TOTAL BILIRUBIN 0.4 MG/DL (0.0-1.0); TOTAL PROTEIN 7.8 G/DL (6.4-8.3)
[2018-06-24 17:33] LABS: APPEARANCE CLEAR ((CLEAR)); BILIRUBIN NEGATIVE; BLOOD NEGATIVE; COLOR YELLOW ((YELLOW)); GLUCOSE (STRIP) 50; KETONES NEGATIVE; LEUKOCYTES NEGATIVE; NITRITE NEGATIVE; PROTEIN (STRIP) 100; SPECIFIC GRAVITY 1.006 (1.000-1.030); UROBILINOGEN 0.2 MG/DL (0.2-1.0)
[2018-06-24 17:38] LABS: ACETAMINOPHEN (TYLENOL) < 10 MCG/ML (10-30); SALICYLATE < 3.0 MG/DL (15-30)
[2018-06-24 17:39] LABS: BACTERIA NONE SEEN /HPF; EPITHELIAL CELLS RARE /HPF; HYALINE CASTS 0-5 /LPF; MUCUS NONE SEEN /LPF; RED BLOOD CELLS 0-5 /HPF (0-5); UCUL ADDED? NO; WHITE BLOOD CELLS 0-5 /HPF (0-5)
[2018-06-24 18:31] LABS: CREATINE KINASE 80 IU/L (1-294)
[2018-06-24 18:32] VITALS: BP 148/73
[2018-06-24 20:05] VITALS: BP 191/94
[2018-06-24 23:36] VITALS: BP 174/83
[2018-06-25 02:34] LABS: BENZODIAZEPINES, URINE SCREEN Negative (200 ng/mL)
[2018-06-25 04:25] VITALS: BP 165/78
[2018-06-25 05:21] LABS: HEMATOCRIT 27.2 % (38.0-50.0); HEMOGLOBIN 9.3 G/DL (12.5-16.6); MCH 30.9 PG (29.0-34.0); MCHC 34.2 G/DL (30.0-36.0); MCV 90.4 FL (86-99); PLATELET COUNT 205 K/uL (156-360); RBC DIS.WIDTH-CV 13.2 % (11.8-14.6); RED BLOOD COUNT 3.01 M/uL (4.00-5.50); WHITE BLOOD COUNT 6.8 K/uL (4.1-10.2)
[2018-06-25 06:09] LABS: CHLORIDE 95 MEQ/L (99-109); GFR ESTIMATE (CALCULATED) 11 mL/min/ (58.99-99999); GLUCOSE 160 mg/dL (70-99); POTASSIUM 4.3 MEQ/L (3.7-5.4); SODIUM 136 MEQ/L (136-147); UREA NITROGEN (BUN) 51 mg/dL (9-23)
[2018-06-25 07:53] VITALS: BP 145/65
[2018-06-25 08:38] VITALS: BP 136/69
[2018-06-25 11:25] VITALS: BP 133/65
[2018-06-25 12:32] LABS: CARBOXY HGB 1.5 % (0-5); COMMENTS - BLOOD GASES +C; FI02 21 %; METHEMOGLOBIN 0.7 % (0-1.5); O2 SATURATION (CALCULATED) 96.3 % (95-99); PCO2 45 mm Hg (35-45); PO2 72 mm Hg (80-100); SITE RR +A; TOTAL RESP RATE 18 resp/min
[2018-06-25 12:33] LABS: BASE EXCESS 2.7 mEq/L (-3 to +3); BICARBONATE 27.9 mEq/L (22-26)
[2018-06-25 20:10] VITALS: BP 136/73
[2018-06-25 23:16] VITALS: BP 107/64
[2018-06-26 03:04] VITALS: BP 160/89
[2018-06-26 05:29] LABS: BASOPHIL (%) 0.6 % (0-1); EOSINOPHIL (%) 0.4 % (0-5); HEMATOCRIT 28.5 % (38.0-50.0); HEMOGLOBIN 9.8 G/DL (12.5-16.6); IMMATURE GRANULOCYTE (%) 0.7 % (0.0-0.7); LYMPHOCYTE (%) 17.5 % (15-42); LYMPHOCYTE COUNT 1.2 K/uL (1.0-2.8); MCH 30.3 PG (29.0-34.0); MCHC 34.4 G/DL (30.0-36.0); MCV 88.2 FL (86-99); MONOCYTE (%) 11.5 % (3-12); MONOCYTE COUNT 0.8 K/uL (0-0.8); NEUTROPHIL (%) 69.3 % (45-76); NEUTROPHIL COUNT 4.6 K/uL (1.8-6.4); NRBC (%) 0.3 /100 WBC (0-0); PLATELET COUNT 236 K/uL (156-360); RBC DIS.WIDTH-CV 13.1 % (11.8-14.6); RBC DIS.WIDTH-SD 41.1 % (39-53); RED BLOOD COUNT 3.23 M/uL (4.00-5.50); WHITE BLOOD COUNT 6.7 K/uL (4.1-10.2)
[2018-06-26 06:09] LABS: ALBUMIN 3.8 G/DL (3.2-4.8); ALKALINE PHOSPHATASE 85 IU/L (3-129); ALT (GPT) 15 IU/L (3-49); AST (GOT) 15 IU/L (2-34); CHLORIDE 96 MEQ/L (99-109); GLUCOSE 149 mg/dL (70-99); SODIUM 139 MEQ/L (136-147)
[2018-06-26 06:11] LABS: CREATININE 3.6 MG/DL (0.6-1.3); GFR ESTIMATE (CALCULATED) 19 mL/min/ (58.99-99999); POTASSIUM 3.2 MEQ/L (3.7-5.4); TOTAL BILIRUBIN 0.6 MG/DL (0.0-1.0); UREA NITROGEN (BUN) 19 mg/dL (9-23)
[2018-06-26 07:17] VITALS: BP 142/86
[2018-06-26 11:37] VITALS: BP 139/71
[2018-06-26 15:32] VITALS: BP 150/80
[2018-06-26] MEDS ORDERED: LABETALOL HCL200 MG PO (18:02)
[2018-06-26 20:00] VITALS: BP 202/118
[2018-06-27 00:05] VITALS: BP 160/90
[2018-06-27 05:00] VITALS: BP 164/87
[2018-06-27 07:33] VITALS: BP 144/78
[2018-06-27 08:29] LABS: BASOPHIL (%) 0.3 % (0-1); EOSINOPHIL (%) 1.8 % (0-5); EOSINOPHIL COUNT 0.1 K/uL (0-0.3); HEMATOCRIT 24.4 % (38.0-50.0); HEMOGLOBIN 8.6 G/DL (12.5-16.6); LYMPHOCYTE (%) 16.9 % (15-42); LYMPHOCYTE COUNT 1.1 K/uL (1.0-2.8); MCHC 35.2 G/DL (30.0-36.0); MCV 88.1 FL (86-99); MONOCYTE (%) 10.5 % (3-12); MONOCYTE COUNT 0.7 K/uL (0-0.8); NEUTROPHIL (%) 69.5 % (45-76); NEUTROPHIL COUNT 4.3 K/uL (1.8-6.4); PLATELET COUNT 196 K/uL (156-360); RBC DIS.WIDTH-SD 41.9 % (39-53); RED BLOOD COUNT 2.77 M/uL (4.00-5.50); WHITE BLOOD COUNT 6.2 K/uL (4.1-10.2)
[2018-06-27 08:42] LABS: CHLORIDE 102 MEQ/L (99-109); POTASSIUM 3.1 MEQ/L (3.7-5.4); SODIUM 141 MEQ/L (136-147)
[2018-06-27 08:59] LABS: GFR ESTIMATE (CALCULATED) 13 mL/min/ (58.99-99999); GLUCOSE 174 mg/dL (70-99); UREA NITROGEN (BUN) 26 mg/dL (9-23)
[2018-06-27 09:00] LABS: CREATININE 5.1 MG/DL (0.6-1.3)
[2018-06-27] MEDS ORDERED: CARDURA2 M1 PO (13:37)
[2018-06-27] MEDS ORDERED: CLOPIDOGREL75 MG PO (13:37)
[2018-06-27] MEDS ORDERED: SYNTHROID75 MCG PO (13:37)
[2018-06-27] MEDS ORDERED: TRAZODONE HCL50 MG PO (13:37)
[2018-06-27] MEDS ORDERED: LIPITOR40 MG PO (13:37)
[2018-06-27] MEDS ORDERED: JANUVIA100 MG PO (13:37)
[2018-06-27] MEDS ORDERED: CATAPRES0.2 MG PO (13:37)
[2018-06-27] MEDS ORDERED: BACLOFEN10 MG PO (13:37)
[2018-06-27] MEDS ORDERED: ENDOCET 5-3251 EACH PO (13:37)
[2018-06-27] MEDS ORDERED: KEPPRA500 MG PO (13:37)
[2018-06-27] MEDS ORDERED: NIFEDIPINE ER60 MG PO (13:38)
[2018-06-27] MEDS ORDERED: ASPIR-LOW81 MG PO (13:38)
[2018-06-27 16:04] VITALS: BP 170/77
[2018-06-27 17:35] LABS: HEMATOCRIT 25.9 % (38.0-50.0); MCH 31.3 PG (29.0-34.0); MCHC 34.7 G/DL (30.0-36.0); MCV 89.9 FL (86-99); PLATELET COUNT 210 K/uL (156-360); RBC DIS.WIDTH-CV 14.5 % (11.8-14.6); RBC DIS.WIDTH-SD 43.3 % (39-53); RED BLOOD COUNT 2.88 M/uL (4.00-5.50); WHITE BLOOD COUNT 6.3 K/uL (4.1-10.2)
[2018-06-27 20:02] VITALS: BP 144/82
[2018-06-28 04:22] VITALS: BP 155/75
[2018-06-28 10:59] LABS: CHLORIDE 95 MEQ/L (99-109); CREATININE 4.3 MG/DL (0.6-1.3); GFR ESTIMATE (CALCULATED) 15 mL/min/ (58.99-99999); GLUCOSE 216 mg/dL (70-99); POTASSIUM 3.6 MEQ/L (3.7-5.4); SODIUM 137 MEQ/L (136-147); UREA NITROGEN (BUN) 22 mg/dL (9-23)
[2018-06-28 11:19] VITALS: BP 128/70
[2018-06-28 15:46] VITALS: BP 115/75
[2018-06-28 19:29] VITALS: BP 130/76
[2018-06-29] VITALS: BP 150/84
[2018-06-29 04:00] VITALS: BP 137/83
[2018-06-29 06:09] LABS: HEMOGLOBIN 8.8 G/DL (12.5-16.6); MCH 31.4 PG (29.0-34.0); MCHC 33.8 G/DL (30.0-36.0); MCV 92.9 FL (86-99); NRBC (%) 0.6 /100 WBC (0-0); PLATELET COUNT 216 K/uL (156-360); RBC DIS.WIDTH-CV 14.7 % (11.8-14.6); RBC DIS.WIDTH-SD 45.7 % (39-53); WHITE BLOOD COUNT 5.1 K/uL (4.1-10.2)
[2018-06-29 06:38] LABS: CHLORIDE 96 MEQ/L (99-109); GLUCOSE 140 mg/dL (70-99); SODIUM 136 MEQ/L (136-147); UREA NITROGEN (BUN) 33 mg/dL (9-23)
[2018-06-29 06:50] LABS: CREATININE 5.3 MG/DL (0.6-1.3); GFR ESTIMATE (CALCULATED) 12 mL/min/ (58.99-99999); POTASSIUM 4.4 MEQ/L (3.7-5.4)
[2018-06-29 07:15] VITALS: BP 135/66
[2018-06-29 11:34] VITALS: BP 121/69
[2018-06-29 15:08] VITALS: BP 126/60
[2018-06-30 00:17] VITALS: BP 144/79
[2018-06-30 07:38] VITALS: BP 137/79
[2018-07-01] VITALS: BP 101/55
[2018-07-01 07:54] VITALS: BP 118/63
[2018-07-01 15:47] VITALS: BP 150/64
[2018-07-02 00:10] VITALS: BP 149/96
[2018-07-02 07:53] VITALS: BP 133/60
[2018-07-02 14:04] LABS: BASOPHIL (%) 0.6 % (0-1); EOSINOPHIL (%) 5.7 % (0-5); EOSINOPHIL COUNT 0.4 K/uL (0-0.3); HEMOGLOBIN 7.4 G/DL (12.5-16.6); LYMPHOCYTE (%) 16.7 % (15-42); LYMPHOCYTE COUNT 1.2 K/uL (1.0-2.8); MCH 32.5 PG (29.0-34.0); MCHC 35.2 G/DL (30.0-36.0); MCV 92.1 FL (86-99); MONOCYTE (%) 10.3 % (3-12); MONOCYTE COUNT 0.7 K/uL (0-0.8); NEUTROPHIL (%) 65.7 % (45-76); NEUTROPHIL COUNT 4.5 K/uL (1.8-6.4); PLATELET COUNT 169 K/uL (156-360); RBC DIS.WIDTH-CV 14.8 % (11.8-14.6); RBC DIS.WIDTH-SD 46.8 % (39-53); RED BLOOD COUNT 2.28 M/uL (4.00-5.50); WHITE BLOOD COUNT 6.9 K/uL (4.1-10.2)
[2018-07-02 14:27] LABS: ALBUMIN 3.6 G/DL (3.2-4.8); CHLORIDE 97 MEQ/L (99-109); GLUCOSE 211 mg/dL (70-99); POTASSIUM 5.2 MEQ/L (3.7-5.4); SODIUM 132 MEQ/L (136-147)
[2018-07-02 14:28] LABS: CREATININE 6.7 MG/DL (0.6-1.3); GFR ESTIMATE (CALCULATED) 9 mL/min/ (58.99-99999); PHOSPHORUS 6.3 mg/dL (2.5-4.9); UREA NITROGEN (BUN) 58 mg/dL (9-23)
[2018-07-02 17:28] VITALS: BP 118/66
[2018-07-02 23:35] VITALS: BP 189/86
[2018-07-03 03:51] LABS: STOOL OCCULT BLD 1ST SPECIMEN NEGATIVE
[2018-07-03 05:56] LABS: HEMATOCRIT 24.1 % (38.0-50.0); HEMOGLOBIN 8.2 G/DL (12.5-16.6); MCH 31.3 PG (29.0-34.0); PLATELET COUNT 190 K/uL (156-360); RBC DIS.WIDTH-CV 14.5 % (11.8-14.6); RBC DIS.WIDTH-SD 46.1 % (39-53); RED BLOOD COUNT 2.62 M/uL (4.00-5.50); WHITE BLOOD COUNT 6.3 K/uL (4.1-10.2)
[2018-07-03 08:40] LABS: CHLORIDE 97 MEQ/L (99-109); CREATININE 4.4 MG/DL (0.6-1.3); GFR ESTIMATE (CALCULATED) 15 mL/min/ (58.99-99999); GLUCOSE 130 mg/dL (70-99); POTASSIUM 4.6 MEQ/L (3.7-5.4); SODIUM 136 MEQ/L (136-147); UREA NITROGEN (BUN) 32 mg/dL (9-23)
== END 2018-07-03 13:23 | disposition home health service (06) | DRG 177 ==
LOC: EME 13:18 → EDOF 16:41 → 5SOUTH 16:41 → 4EAST 16:41 → ENRESERV 17:27 → EDOF 17:55 → 4EAST 18:09 → ENRESERV 06-27 08:44 → ENRESERVTM 06-27 08:44 → 5SOUTH 06-27 10:56 → ENPENDDIS 07-03 12:29 → 5SOUTH 07-03 13:23
PROVIDERS: Emergency Medicine; Hospitalist; Internal Medicine; Internal Medicine Nephrology; Physician Assistant Medical; Specialist; Student in an Organized Health Care Education/Training Program
PROC: 05HP33Z Insertion of Infusion Device into Right External Jugular Vein, Percutaneous Approach (ICD-10-PCS; principal; 2018-06-24)
PROC: 5A1D70Z Performance of Urinary Filtration, Intermittent, Less than 6 Hours Per Day (ICD-10-PCS; 2018-06-25)
DX: J69.0 Pneumonitis due to inhalation of food and vomit (principal); G93.41 Metabolic encephalopathy; I12.0 Hypertensive chronic kidney disease with stage 5 chronic kidney disease or end stage renal disease; N18.6 End stage renal disease; E87.6 Hypokalemia; I45.81 Long QT syndrome; Z91.14 Patient's other noncompliance with medication regimen; Z99.2 Dependence on renal dialysis; E11.42 Type 2 diabetes mellitus with diabetic polyneuropathy; E11.22 Type 2 diabetes mellitus with diabetic chronic kidney disease; E11.40 Type 2 diabetes mellitus with diabetic neuropathy, unspecified; S91.301A Unspecified open wound, right foot, initial encounter; F05 Delirium due to known physiological condition; D63.1 Anemia in chronic kidney disease; G40.909 Epilepsy, unspecified, not intractable, without status epilepticus; E03.9 Hypothyroidism, unspecified; E78.5 Hyperlipidemia, unspecified; J45.909 Unspecified asthma, uncomplicated; Z79.4 Long term (current) use of insulin; Z86.73 Personal history of transient ischemic attack (TIA), and cerebral infarction without residual deficits; F10.21 Alcohol dependence, in remission; F32.9 Major depressive disorder, single episode, unspecified; F41.9 Anxiety disorder, unspecified; M19.90 Unspecified osteoarthritis, unspecified site; R19.7 Diarrhea, unspecified; R26.81 Unsteadiness on feet
CPT/HCPCS: 36600; 70450; 70551; 71045; 80048; 80053; 80069; 80076; 80306 90; 81003; 82010; 82140; 82272; 82550; 82803; 82948; 83605; 84484; 85025; 85027; 85610; 85730; 87040; 92610 GN; 93005; 95819; 99281; 99285; G0480; J0295; J0360; J1644; J1815; J1953; J2060; J7050

== ENCOUNTER 2018-07-04 07:18 | Inpatient (IN) | payer OTHER ==
[~2018-07-04] VITALS: Ht 157.5 cm; Wt 68.0 kg
[2018-07-04] VITALS (10 sets, daily range): BP systolic 135–173; BP diastolic 81–97
[~2018-07-04 07:18] MED LIST changes: +CARDURA2 M1 PO; +ENDOCET 5-3251 EACH PO; +JANUVIA100 MG PO; +KEPPRA500 MG PO; +SYNTHROID75 MCG PO
[2018-07-04 08:37] LABS: BASOPHIL (%) 0.8 % (0-1); BASOPHIL COUNT 0.1 K/uL (0-0.1); EOSINOPHIL (%) 6.1 % (0-5); EOSINOPHIL COUNT 0.4 K/uL (0-0.3); HEMATOCRIT 23.8 % (38.0-50.0); HEMOGLOBIN 8.1 G/DL (12.5-16.6); IMMATURE GRANULOCYTE (%) 1.6 % (0.0-0.7); LYMPHOCYTE (%) 19.8 % (15-42); LYMPHOCYTE COUNT 1.2 K/uL (1.0-2.8); MCV 94.1 FL (86-99); MONOCYTE (%) 13.5 % (3-12); MONOCYTE COUNT 0.8 K/uL (0-0.8); NEUTROPHIL (%) 58.2 % (45-76); NEUTROPHIL COUNT 3.6 K/uL (1.8-6.4); PLATELET COUNT 190 K/uL (156-360); RBC DIS.WIDTH-CV 14.9 % (11.8-14.6); RBC DIS.WIDTH-SD 49.2 % (39-53); RED BLOOD COUNT 2.53 M/uL (4.00-5.50); WHITE BLOOD COUNT 6.2 K/uL (4.1-10.2)
[2018-07-04 08:54] LABS: CHLORIDE 97 mEq/L (99-109); POTASSIUM 4.8 mEq/L (3.7-5.4); SODIUM 134 mEq/L (136-147)
[2018-07-04 08:56] LABS: GLUCOSE 117 mg/dL (70-99)
[2018-07-04 09:00] LABS: GFR ESTIMATE (CALCULATED) 10 mL/min/ (58.99-99999); UREA NITROGEN (BUN) 42 mg/dL (9-23)
[2018-07-04 09:04] LABS: CREATININE 6.1 mg/dL (0.6-1.3)
[2018-07-04 09:08] LABS: APPEARANCE SL.HAZY ((CLEAR)); BILIRUBIN NEGATIVE; BLOOD NEGATIVE; COLOR YELLOW ((YELLOW)); GLUCOSE (STRIP) 50; KETONES NEGATIVE; LEUKOCYTES NEGATIVE; NITRITE NEGATIVE; PROTEIN (STRIP) 100; SPECIFIC GRAVITY 1.012 (1.000-1.030); UROBILINOGEN 0.2 MG/DL (0.2-1.0)
[2018-07-04 09:13] LABS: BACTERIA NONE SEEN /HPF; EPITHELIAL CELLS RARE /HPF; MUCUS NONE SEEN /LPF; RED BLOOD CELLS 0-5 /HPF (0-5); WHITE BLOOD CELLS 0-5 /HPF (0-5)
[2018-07-04 10:41] LABS: COMMENTS - BLOOD GASES A+C+; DEVICE NC; O2 FLOW 4 L/MIN; SITE LR; TOTAL RESP RATE 11 resp/min
[2018-07-04 10:42] LABS: PCO2 54 mm Hg (35-45); PO2 136 mm Hg (80-100); pH 7.29 (7.35-7.45)
[2018-07-04 10:43] LABS: BASE EXCESS 27.7 mEq/L (-3 to +3); BICARBONATE 26 mEq/L (22-26); CARBOXY HGB 1.3 % (0-5); METHEMOGLOBIN 0.9 % (0-1.5)
[2018-07-04 14:13] LABS: COMMENTS - BLOOD GASES A+C+; DEVICE VENT; FI02 100 %; MECHANICAL RATE 16 resp/min; MODE AC VC; O2 FLOW 50 L/MIN; PEEP 5 CM/H20; SITE LR; TIDAL VOLUME 500 ML; TOTAL RESP RATE 16 resp/min
[2018-07-04 14:14] LABS: BASE EXCESS 26.4 mEq/L (-3 to +3); BICARBONATE 25.2 mEq/L (22-26); METHEMOGLOBIN 0.8 % (0-1.5); PCO2 38 mm Hg (35-45); PO2 542 mm Hg (80-100); pH 7.43 (7.35-7.45)
[2018-07-04 16:13] LABS: AMPHETAMINE NEGATIVE (500 ng/mL); BARBITURATES NEGATIVE (200 ng/mL); BENZODIAZEPINES NEGATIVE (150 ng/mL); BUPRENORPHINE NEGATIVE (10 ng/mL); COCAINE NEGATIVE (150 ng/mL); METHADONE NEGATIVE (200 ng/mL); METHAMPHETAMINE NEGATIVE (500 ng/mL); OPIATES (MORPHINE) NEGATIVE (100 ng/mL); OXYCODONE NEGATIVE (100 ng/mL); PHENCYCLIDINE NEGATIVE (25 ng/mL); PROPOXYPHENE NEGATIVE (300 ng/mL); THC CANNABINOIDS NEGATIVE (50 ng/mL); TRICYCLIC ANTIDEPRESSANTS NEGATIVE (300 ng/mL)
[2018-07-05] VITALS (25 sets, daily range): BP systolic 114–193; BP diastolic 70–101
[2018-07-05 05:34] LABS: BASOPHIL (%) 0.6 % (0-1); BASOPHIL COUNT 0.1 K/uL (0-0.1); EOSINOPHIL (%) 1.6 % (0-5); EOSINOPHIL COUNT 0.2 K/uL (0-0.3); HEMATOCRIT 23.3 % (38.0-50.0); HEMOGLOBIN 8.3 G/DL (12.5-16.6); IMMATURE GRANULOCYTE (%) 0.7 % (0.0-0.7); LYMPHOCYTE (%) 5.5 % (15-42); LYMPHOCYTE COUNT 0.6 K/uL (1.0-2.8); MCH 32.7 PG (29.0-34.0); MCHC 35.6 G/DL (30.0-36.0); MCV 91.7 FL (86-99); MONOCYTE (%) 6.7 % (3-12); MONOCYTE COUNT 0.8 K/uL (0-0.8); NEUTROPHIL (%) 84.9 % (45-76); NEUTROPHIL COUNT 9.5 K/uL (1.8-6.4); PLATELET COUNT 210 K/uL (156-360); RBC DIS.WIDTH-CV 15.1 % (11.8-14.6); RBC DIS.WIDTH-SD 49.2 % (39-53); RED BLOOD COUNT 2.54 M/uL (4.00-5.50); WHITE BLOOD COUNT 11.2 K/uL (4.1-10.2)
[2018-07-05 06:12] LABS: COMMENTS - BLOOD GASES C+; DEVICE VENT; FI02 40 %; MECHANICAL RATE 16 resp/min; SITE RR
[2018-07-05 06:13] LABS: BASE EXCESS -1.6 mEq/L (-3 to +3); BICARBONATE 21.1 mEq/L (22-26); CARBOXY HGB 0.6 % (0-5); METHEMOGLOBIN 0.8 % (0-1.5); O2 SATURATION (CALCULATED) 98.2 % (95-99); PCO2 27 mm Hg (35-45); PO2 156 mm Hg (80-100)
[2018-07-05 07:48] LABS: CHLORIDE 95 MEQ/L (99-109); CREATININE 6.1 MG/DL (0.6-1.3); GFR ESTIMATE (CALCULATED) 10 mL/min/ (58.99-99999); GLUCOSE 119 mg/dL (70-99); POTASSIUM 4.7 MEQ/L (3.7-5.4); SODIUM 131 MEQ/L (136-147); UREA NITROGEN (BUN) 54 mg/dL (9-23)
[2018-07-05 08:36] LABS: THYROTROPIN (TSH) 1.6 MIU/L (0.4-5.5)
[2018-07-06] VITALS (23 sets, daily range): BP systolic 91–197; BP diastolic 56–101
[2018-07-06 05:33] LABS: BASOPHIL (%) 0.6 % (0-1); EOSINOPHIL (%) 2.4 % (0-5); EOSINOPHIL COUNT 0.2 K/uL (0-0.3); HEMATOCRIT 27.6 % (38.0-50.0); HEMOGLOBIN 9.5 G/DL (12.5-16.6); IMMATURE GRANULOCYTE (%) 0.6 % (0.0-0.7); LYMPHOCYTE (%) 12.5 % (15-42); LYMPHOCYTE COUNT 0.9 K/uL (1.0-2.8); MCH 31.1 PG (29.0-34.0); MCHC 34.4 G/DL (30.0-36.0); MCV 90.5 FL (86-99); MONOCYTE (%) 9.3 % (3-12); MONOCYTE COUNT 0.6 K/uL (0-0.8); NEUTROPHIL (%) 74.6 % (45-76); NEUTROPHIL COUNT 5.1 K/uL (1.8-6.4); PLATELET COUNT 250 K/uL (156-360); RBC DIS.WIDTH-SD 48.6 % (39-53); WHITE BLOOD COUNT 6.8 K/uL (4.1-10.2)
[2018-07-06 05:39] LABS: RED BLOOD COUNT 3.05 M/uL (4.00-5.50)
[2018-07-06 06:05] LABS: CHLORIDE 96 MEQ/L (99-109); SODIUM 134 MEQ/L (136-147); UREA NITROGEN (BUN) 37 mg/dL (9-23)
[2018-07-06 06:09] LABS: CREATININE 4.8 MG/DL (0.6-1.3); GFR ESTIMATE (CALCULATED) 14 mL/min/ (58.99-99999); GLUCOSE 181 mg/dL (70-99); POTASSIUM 3.7 MEQ/L (3.7-5.4)
[2018-07-07] VITALS (23 sets, daily range): BP systolic 87–177; BP diastolic 49–98
[2018-07-07 05:40] LABS: BASOPHIL (%) 0.6 % (0-1); BASOPHIL COUNT 0.1 K/uL (0-0.1); EOSINOPHIL (%) 1.8 % (0-5); EOSINOPHIL COUNT 0.1 K/uL (0-0.3); HEMATOCRIT 24.6 % (38.0-50.0); HEMOGLOBIN 8.4 G/DL (12.5-16.6); IMMATURE GRANULOCYTE (%) 0.8 % (0.0-0.7); LYMPHOCYTE (%) 13.2 % (15-42); LYMPHOCYTE COUNT 1.1 K/uL (1.0-2.8); MCH 31.2 PG (29.0-34.0); MCHC 34.1 G/DL (30.0-36.0); MCV 91.4 FL (86-99); MONOCYTE (%) 9.8 % (3-12); MONOCYTE COUNT 0.8 K/uL (0-0.8); NEUTROPHIL (%) 73.8 % (45-76); NEUTROPHIL COUNT 5.9 K/uL (1.8-6.4); PLATELET COUNT 282 K/uL (156-360); RBC DIS.WIDTH-CV 15.4 % (11.8-14.6); RBC DIS.WIDTH-SD 50.5 % (39-53); RED BLOOD COUNT 2.69 M/uL (4.00-5.50)
[2018-07-07 06:02] LABS: CHLORIDE 95 MEQ/L (99-109); GLUCOSE 165 mg/dL (70-99); MAGNESIUM 1.9 mg/dl (1.3-2.7); POTASSIUM 3.1 MEQ/L (3.7-5.4); SODIUM 136 MEQ/L (136-147); UREA NITROGEN (BUN) 22 mg/dL (9-23)
[2018-07-07 06:06] LABS: CREATININE 3.6 MG/DL (0.6-1.3); GFR ESTIMATE (CALCULATED) 19 mL/min/ (58.99-99999); PHOSPHORUS 2.2 mg/dL (2.5-4.9)
[2018-07-08] VITALS (23 sets, daily range): BP systolic 91–191; BP diastolic 57–96
[2018-07-08 06:29] LABS: BASOPHIL (%) 0.7 % (0-1); BASOPHIL COUNT 0.1 K/uL (0-0.1); EOSINOPHIL (%) 4.6 % (0-5); EOSINOPHIL COUNT 0.3 K/uL (0-0.3); HEMATOCRIT 24.6 % (38.0-50.0); HEMOGLOBIN 8.4 G/DL (12.5-16.6); IMMATURE GRANULOCYTE (%) 1.1 % (0.0-0.7); LYMPHOCYTE (%) 11.6 % (15-42); LYMPHOCYTE COUNT 0.8 K/uL (1.0-2.8); MCH 31.6 PG (29.0-34.0); MCHC 34.1 G/DL (30.0-36.0); MCV 92.5 FL (86-99); MONOCYTE (%) 7.3 % (3-12); MONOCYTE COUNT 0.5 K/uL (0-0.8); NEUTROPHIL (%) 74.7 % (45-76); NEUTROPHIL COUNT 5.2 K/uL (1.8-6.4); PLATELET COUNT 287 K/uL (156-360); RBC DIS.WIDTH-CV 15.5 % (11.8-14.6); RBC DIS.WIDTH-SD 51.6 % (39-53); RED BLOOD COUNT 2.66 M/uL (4.00-5.50)
[2018-07-08 07:19] LABS: CHLORIDE 97 MEQ/L (99-109); GFR ESTIMATE (CALCULATED) 14 mL/min/ (58.99-99999); GLUCOSE 145 mg/dL (70-99); POTASSIUM 3.7 MEQ/L (3.7-5.4); SODIUM 137 MEQ/L (136-147)
[2018-07-08 07:41] LABS: CREATININE 4.7 MG/DL (0.6-1.3); UREA NITROGEN (BUN) 39 mg/dL (9-23)
[2018-07-09] VITALS (23 sets, daily range): BP systolic 94–157; BP diastolic 57–91
[2018-07-09 05:39] LABS: BASOPHIL (%) 0.4 % (0-1); EOSINOPHIL (%) 2.8 % (0-5); EOSINOPHIL COUNT 0.3 K/uL (0-0.3); HEMATOCRIT 25.5 % (38.0-50.0); HEMOGLOBIN 8.5 G/DL (12.5-16.6); IMMATURE GRANULOCYTE (%) 1.9 % (0.0-0.7); LYMPHOCYTE (%) 3.6 % (15-42); LYMPHOCYTE COUNT 0.3 K/uL (1.0-2.8); MCH 31.8 PG (29.0-34.0); MCHC 33.3 G/DL (30.0-36.0); MCV 95.5 FL (86-99); MONOCYTE (%) 3.6 % (3-12); MONOCYTE COUNT 0.3 K/uL (0-0.8); NEUTROPHIL (%) 87.7 % (45-76); NEUTROPHIL COUNT 8.4 K/uL (1.8-6.4); NRBC (%) 0.2 /100 WBC (0-0); PLATELET COUNT 238 K/uL (156-360); RBC DIS.WIDTH-CV 15.8 % (11.8-14.6); RBC DIS.WIDTH-SD 53.9 % (39-53); RED BLOOD COUNT 2.67 M/uL (4.00-5.50); WHITE BLOOD COUNT 9.5 K/uL (4.1-10.2)
[2018-07-09 10:21] LABS: CHLORIDE 96 MEQ/L (99-109); GFR ESTIMATE (CALCULATED) 12 mL/min/ (58.99-99999); GLUCOSE 131 mg/dL (70-99); POTASSIUM 3.6 MEQ/L (3.7-5.4); SODIUM 138 MEQ/L (136-147); UREA NITROGEN (BUN) 50 mg/dL (9-23)
[2018-07-09 10:24] LABS: CREATININE 5.5 MG/DL (0.6-1.3)
[2018-07-10] VITALS (13 sets, daily range): BP systolic 101–149; BP diastolic 54–78
[2018-07-11 03:45] VITALS: BP 149/67
[2018-07-11 08:01] LABS: BASOPHIL (%) 0.5 % (0-1); EOSINOPHIL COUNT 0.4 K/uL (0-0.3); HEMATOCRIT 21.2 % (38.0-50.0); HEMOGLOBIN 7.1 G/DL (12.5-16.6); IMMATURE GRANULOCYTE (%) 3.9 % (0.0-0.7); LYMPHOCYTE (%) 15.6 % (15-42); LYMPHOCYTE COUNT 1.2 K/uL (1.0-2.8); MCH 31.3 PG (29.0-34.0); MCHC 33.5 G/DL (30.0-36.0); MCV 93.4 FL (86-99); MONOCYTE (%) 11.9 % (3-12); MONOCYTE COUNT 0.9 K/uL (0-0.8); NEUTROPHIL (%) 63.1 % (45-76); NEUTROPHIL COUNT 4.8 K/uL (1.8-6.4); PLATELET COUNT 236 K/uL (156-360); RBC DIS.WIDTH-CV 14.4 % (11.8-14.6); RBC DIS.WIDTH-SD 47.4 % (39-53); RED BLOOD COUNT 2.27 M/uL (4.00-5.50); WHITE BLOOD COUNT 7.6 K/uL (4.1-10.2)
[2018-07-11 08:24] LABS: CHLORIDE 95 MEQ/L (99-109); CREATININE 4.8 MG/DL (0.6-1.3); GFR ESTIMATE (CALCULATED) 14 mL/min/ (58.99-99999); GLUCOSE 160 mg/dL (70-99); POTASSIUM 3.7 MEQ/L (3.7-5.4); SODIUM 134 MEQ/L (136-147); UREA NITROGEN (BUN) 34 mg/dL (9-23)
[2018-07-11 11:00] LABS: HEMATOCRIT 22.3 % (38.0-50.0); HEMOGLOBIN 7.7 G/DL (12.5-16.6); MCV 91.4 FL (86-99)
== END 2018-07-11 14:32 | disposition home health service (06) | DRG 207 ==
LOC: EME 07:18 → EDOF 12:28 → 4WEST 12:28 → ENRESERV 12:31 → 4WEST 14:26 → ENRESERV 07-10 05:49 → 2EASTP 07-10 08:34 → ENRESERV 07-10 13:48 → 2EAST 07-10 13:49
PROVIDERS: Emergency Medicine; Internal Medicine; Internal Medicine Nephrology; Specialist; Student in an Organized Health Care Education/Training Program
DX: J96.02 Acute respiratory failure with hypercapnia (principal); J18.9 Pneumonia, unspecified organism; I12.0 Hypertensive chronic kidney disease with stage 5 chronic kidney disease or end stage renal disease; G40.909 Epilepsy, unspecified, not intractable, without status epilepticus; N18.6 End stage renal disease; D63.1 Anemia in chronic kidney disease; Z99.2 Dependence on renal dialysis; Z91.19 Patient's noncompliance with other medical treatment and regimen; Z91.14 Patient's other noncompliance with medication regimen; Z86.73 Personal history of transient ischemic attack (TIA), and cerebral infarction without residual deficits; Z79.4 Long term (current) use of insulin; E11.22 Type 2 diabetes mellitus with diabetic chronic kidney disease; E11.42 Type 2 diabetes mellitus with diabetic polyneuropathy; E87.3 Alkalosis; E03.9 Hypothyroidism, unspecified; S91.301A Unspecified open wound, right foot, initial encounter; F05 Delirium due to known physiological condition; G93.1 Anoxic brain damage, not elsewhere classified; R68.0 Hypothermia, not associated with low environmental temperature; G93.40 Encephalopathy, unspecified
CPT/HCPCS: 36600; 70450; 71045; 80048; 80202; 81003; 82948; 83605; 83735; 84100; 84443; 85014; 85018; 85025; 87040; 87070; 87205; 87641; 93005; 93971; 94002; 94003; 94640; 94760; 94799; 95819; 99281; 99285; C1751; J0360; J0881; J1644; J1815; J2250; J2543; J2704; J3010; J3370; J7050